=== PATIENT | female | born 1955 | race Caucasian/White ===

== ENCOUNTER 2017-10-13 22:09 | Inpatient (IN) ==
[2017-10-13] MEDS ORDERED: 0.9 % Sodium Chloride 1,000 ML IVC ONE (22:25)
[2017-10-13] MEDS ORDERED: Levofloxacin 750 MG/150 ML 750 MG/150 ML BAG IVPB ONE (22:29)
[2017-10-13] MEDS ORDERED: Piperacillin/Tazobactam 3.375 GM in 0.9 % Sodium Chloride Mini Bag 100 ML IVPB ONE (22:29)
[2017-10-13] MEDS ORDERED: Ipratropium/Albuterol Neb 3 ML IH ONE (22:29)
[2017-10-13] MEDS ORDERED: methylPREDNISolone 125 MG/2 ML VIAL IVP ONE (22:31)
[2017-10-13] MEDS ORDERED: Acetaminophen IV 1,000 MG/100 ML INFUS..BTL IVPB ONE (22:41)
--- NOTE | 2017-10-13 22:44 | Emergency Department Note ---
Disposition Clinical Impression: Influenza, Bronchitis, Hyponatremia, Thyroid lesion Respiratory failure Qualifiers: Chronicity: unspecified Respiratory failure complication: unspecified whether with hypoxia or hypercapnia Qualified Code(s): J96.90 - Respiratory failure, unspecified, unspecified whether with hypoxia or hypercapnia UTI (urinary tract infection) Qualifiers: Urinary tract infection type: site unspecified Hematuria presence: without hematuria Qualified Code(s): N39.0 - Urinary tract infection, site not specified Disposition: Admitted As Inpatient Condition: Fair Time of Disposition: 23:39 General Adult HPI - General Chief complaint: ED General Medical Stated complaint: Flu like symptoms Time Seen by Provider: 10/13/17 22:25 Source: patient Mode of arrival: ambulatory Limitations: no limitations Nursing Notes Reviewed: Yes Vital Signs Reviewed: Yes - History of Present Illness HPI Narrative: 62-year-old female with history of COPD presents for evaluation of shortness of breath and cough. Patient was found on the third floor the hospital. Patient appeared to be acutely confused. Patient's been visiting her significant other who is been in the hospital. Patient states she has been having a cough and shortness of breath. Patient's also been having a fever. Patient denies any chest pain. Pain Scale: 0 - Related Data Allergies Allergy/AdvReac Type Severity Reaction Status Date / Time acetaminophen [From Vicodin] AdvReac See Verified 10/13/17 22:14 Comments ceftriaxone [From Rocephin] AdvReac See Verified 10/13/17 22:14 Comments diazepam [From Valium] AdvReac See Verified 10/13/17 22:14 Comments hydrocodone [From Vicodin] AdvReac See Verified 10/13/17 22:14 Comments Methadone AdvReac See Verified 10/13/17 22:14 Comments morphine AdvReac Agitated Verified 10/13/17 22:14 All systems ED: reviewed and negative except as stated. Constitutional: Reports: fever Cardiovascular: Denies: chest pain Respiratory: Reports: cough, sputum production Gastrointestinal: Denies: abdominal pain, nausea, vomiting Past Medical History - Past Medical History Source: patient Medical history: Reports: COPD, hypertension Psychiatric history: Reports: no psych history - Social History Smoking Status: Current every day smoker Smokeless Tobacco Status: No Alcohol use: Reports: none Drug use: Reports: none Physical Exam - General Limitations: no limitations General appearance: alert - Head Head exam: atraumatic, normocephalic, normal inspection - Eye Eye exam: Present: normal appearance, PERRL - ENT ENT exam: normal exam, normal oropharynx, mucous membranes moist - Neck Neck exam: Present: normal inspection - Chest Chest inspection: Present: normal inspection - Respiratory Respiratory exam: Present: respiratory distress, accessory muscle use, prolonged expiratory phase, other (diffusely decreased) - Cardiovascular Cardiovascular exam: Present: normal rhythm, tachycardia. Absent: systolic murmur - Abdominal Exam Abdominal exam: Present: soft, Non-Tender - Extremities Exam Extremities exam: Present: normal inspection. Absent: pedal edema - Back Exam Back exam: Present: normal inspection - Neurological Exam Neurological exam: Present: alert, CN II-XII intact - Expanded Neurological Exam Patient oriented to: Present: person, place, time Speech: Present: fluid speech Coma Scale Eye Opening: Spontaneous Coma Scale Motor Response: Obeys Commands - Skin Skin exam: Present: warm, dry, intact, normal color Course Course Narrative: Patient was found crawling around on the third floor of the hospital. Patient does have a history of COPD. Found to be hypoxic. Concerns for respiratory failure. Patient does have surgical criteria likely sepsis and pneumonia. Patient will get basic labs including lactate blood cultures and chest x-ray. BiPAP placed. Patient will get antibiotics. - Reevaluation(s) Reevaluation #1: Patient has been tolerating the BiPAP well. Time: 23:47 Reevaluation #2: Patient seen and examined. Patient appears to be breathing more comfortably. We will discontinue BiPAP at this time for intermittent windows. Time: 23:54 Reevaluation #3: Patient seen and examined. Patient's resting comfortably. Patient's mental status appears to be improving. Family at bedside states the patient does have a strong history of COPD and smoking. Patient intermittently worse oxygen. Patient's episode earlier today with altered mental status likely combination of several factors including hypoxia, UTI and influenza. Time: 01:09 Vital Signs Temperature 102.8 F H 10/13/17 22:14 Pulse Rate 112 10/13/17 22:14 Respiratory Rate 20 10/13/17 22:14 Blood Pressure 139/79 10/13/17 22:14 O2 Sat by Pulse Oximetry 85 10/13/17 22:14 Temperature 97.5 F L 10/14/17 03:09 Pulse Rate 81 10/14/17 03:48 Respiratory Rate 16 10/14/17 03:48 Blood Pressure 117/68 10/14/17 03:09 O2 Sat by Pulse Oximetry 100 10/14/17 03:48 Oxygen Delivery Oxygen Delivery Room Air Medical Decision Making - MDM Narrative Medical decision making narrative: 62-year-old female persists for evaluation of respiratory distress. Patient was found to be in hypoxemic respiratory distress with requirement of BiPAP. Patient does have a history of COPD. Patient was given nebs as well as steroids. Patient's workup in the emergency department reveals influenza positive. Patient was given Tamiflu given her comorbidities and work of breathing. Patient was found missing her significant other upstairs. Patient was confused likely related to her decreased oxygen status. Patient met SIRS criteria however the patient did not meet the 30 mL/kg IV fluid bolus requirement. Patient appears warm and well-perfused. Patient was given triple antibiotics to cover the most likely respiratory pathogens. Patient urine shows signs of infection. Patient's CT of the chest shows findings consistent with bronchitis bronchiolitis. Patient's head CT shows no acute bleeds. Patient clinically does not have mastoiditis but has signs of influenza upper respiratory virus. Patient was treated with triple antibiotics early on in the course given her sepsis. Patient's altered mental status is not consistent with meningitis or encephalitis. Patient's fever is explained by her positive influenza and bronchitis and bronchiolitis. Patient's mental status has improved during her ED course. - Lab Data Lab results reviewed: Yes I reviewed the patient's lab results. Result diagrams: 10/14/17 04:27 10/14/17 04:27 Lab Results 10/13/17 10/13/17 10/13/17 Range/Units 22:27 22:27 22:27 WBC 3.5 L (4.3-11.1) K/mcL RBC 3.91 (3.82-4.97) M/mcL Hgb 10.7 L (11.5-15.4) g/dL Hct 34.1 L (35.3-44.9) % MCV 87.2 (83.0-100.0) fL MCH 27.4 L (28.0-33.3) pg MCHC 31.4 L (31.6-35.5) g/dL RDW 15.6 H (11.5-14.5) % Plt Count 169 (140-400) K/mcL MPV 10.3 (9.4-12.4) fL Immature Gran % 0.3 (0-4) % Seg Neutrophils % 75.4 % Lymphocytes % 18.6 % Monocytes % 5.4 % Eosinophils % 0.0 % Basophils % 0.3 % Neutrophils # 2.6 (1.6-8.9) K/mcL Lymphocytes # 0.7 (0.6-4.6) K/mcL Monocytes # 0.2 (0.0-1.3) K/mcL Eosinophils # 0.0 (0.0-0.6) K/mcL Basophils # 0.0 (0.0-0.2) K/mcL Sample Site ABG pH (7.32-7.45) pH Units ABG pCO2 (35-45) mmHg ABG pO2 (85-104) mmHg ABG HCO3 (21-27) mEq/L ABG Total CO2 (20-26) mEq/L ABG O2 Saturation (95-98) % ABG Base Excess (-2 to 3) mEq/L [place] Test O2 Delivery Device Inspired O2 (1-15=lpm [id number]=%) Sodium 132 L (136-145) mEq/L Potassium 4.2 (3.5-5.1) mEq/L Chloride 99 (98-107) mEq/L Carbon Dioxide 26 (23-29) mEq/L BUN 14 (8-23) mg/dL Creatinine 0.98 (0.60-1.20) mg/dL Est GFR ( Amer) > 60 (> 60) Est GFR (Non-Af Amer) 58 L (> 60) BUN/Creatinine Ratio 14 (6-26) Glucose 81 (70-105) mg/dL Calculated Osmolality 274 L (280-300) Lactic Acid 0.7 (0.5-2.2) mmol/L Calcium 9.1 (8.6-10.3) mg/dL Troponin I < 0.03 (< 0.04) ng/mL B-Natriuretic Peptide (Less than 100) pg/mL Urine Color (Yellow) Urine Clarity (Clear) Urine pH (5.0-8.0) pH Units Ur Specific [place] (1.010-1.025) Urine Protein (Neg-Trace) mg/dL Urine Glucose (UA) (Normal) mg/dL Urine Ketones (Negative) mg/dL Urine Blood (Negative) Urine Nitrite (Negative) Urine Bilirubin (Negative) Urine Urobilinogen (Normal) mg/dL Ur Leukocyte Esterase (Negative) Urine Microscopic RBC (0-3) per hpf Urine Microscopic WBC (0-3) per hpf Ur Squamous Epith Cells (None-Few) per lpf Urine Bacteria (None-Few) per hpf Hyaline Casts (None-Few) per lpf 10/13/17 10/13/17 10/13/17 Range/Units 22:27 22:55 23:24 WBC (4.3-11.1) K/mcL RBC (3.82-4.97) M/mcL Hgb (11.5-15.4) g/dL Hct (35.3-44.9) % MCV (83.0-100.0) fL MCH (28.0-33.3) pg MCHC (31.6-35.5) g/dL RDW (11.5-14.5) % Plt Count (140-400) K/mcL MPV (9.4-12.4) fL Immature Gran % (0-4) % Seg Neutrophils % % Lymphocytes % % Monocytes % % Eosinophils % % Basophils % % Neutrophils # (1.6-8.9) K/mcL Lymphocytes # (0.6-4.6) K/mcL Monocytes # (0.0-1.3) K/mcL Eosinophils # (0.0-0.6) K/mcL Basophils # (0.0-0.2) K/mcL Sample Site L Radial ABG pH 7.41 (7.32-7.45) pH Units ABG pCO2 41 (35-45) mmHg ABG pO2 144 H (85-104) mmHg ABG HCO3 26 (21-27) mEq/L ABG Total CO2 28 H (20-26) mEq/L ABG O2 Saturation 99 H (95-98) % ABG Base Excess 2 (-2 to 3) mEq/L [place] Test N/A O2 Delivery Device BiPAP Inspired O2 40.0 (1-15=lpm [id number]=%) Sodium (136-145) mEq/L Potassium (3.5-5.1) mEq/L Chloride (98-107) mEq/L Carbon Dioxide (23-29) mEq/L BUN (8-23) mg/dL Creatinine (0.60-1.20) mg/dL Est GFR ( Amer) (> 60) Est GFR (Non-Af Amer) (> 60) BUN/Creatinine Ratio (6-26) Glucose (70-105) mg/dL Calculated Osmolality (280-300) Lactic Acid (0.5-2.2) mmol/L Calcium (8.6-10.3) mg/dL Troponin I (< 0.04) ng/mL B-Natriuretic Peptide 120 H (Less than 100) pg/mL Urine Color Yellow (Yellow) Urine Clarity Clear (Clear) Urine pH 7.0 (5.0-8.0) pH Units Ur Specific [place] 1.012 (1.010-1.025) Urine Protein Trace (Neg-Trace) mg/dL Urine Glucose (UA) Normal (Normal) mg/dL Urine Ketones 15 H (Negative) mg/dL Urine Blood Negative (Negative) Urine Nitrite Positive A (Negative) Urine Bilirubin Negative (Negative) Urine Urobilinogen Normal (Normal) mg/dL Ur Leukocyte Esterase Trace H (Negative) Urine Microscopic RBC 0-3 (0-3) per hpf Urine Microscopic WBC 5-15 H (0-3) per hpf Ur Squamous Epith Cells Many H (None-Few) per lpf Urine Bacteria Many H (None-Few) per hpf Hyaline Casts None Seen (None-Few) per lpf - Radiology Data Radiology results reviewed: Yes I reviewed the patient's radiology results. Head CT 10/14/17 22:57 IMPRESSION: 1. No acute hemorrhage or evidence for acute ischemia. 2. Paranasal sinus disease including acute bilateral maxillary sinusitis with left-sided mastoiditis. D/ / Gene Costello MD / Gene Costello MD Interpreting Provider: Gene Costello MD Chest CTA 10/14/17 22:59 IMPRESSION: 1. Limited evaluation of the subsegmental pulmonary arteries. No central or segmental pulmonary embolism is detected. 2. Innumerable punctate centrilobular ground-glass nodules with a tree-in-bud distribution, seen throughout both lungs. This is associated with bronchial wall thickening and mucous plugging. Overall, these findings are most compatible with bronchitis and bronchiolitis, likely infectious in etiology. 3. Enlarged mediastinal lymph nodes, which presumably are reactive. 4. 1.3 cm left thyroid lesion. Unless the patient is at high risk for thyroid neoplasm, based upon most recent recommendations, no further follow-up is necessary (see below). RECOMMENDATIONS: Managing Incidental Thyroid Nodule Detected at CT or MRI or US 1. Further evaluation by thyroid Ultrasound recommended for these incidental nodules: Patient Age 18 years or less - Any nodule. Patient Age 19-34 years old - Nodule 1 cm in size or greater Patient Age 35 years or more - Nodule 1.5 cm in size or greater 2. Follow up thyroid ultrasound also recommend in these scenarios -Solitary nodule with high risk imaging features (locally invasive nodule or suspicious lymph nodes) -Any nodule in a heterogeneous enlarged thyroid gland 3. NO further imaging is recommended in the following scenarios -No f/u imaging is recommended for ITNs not meeting the above criteria. -No US or f/u recommended for ITNs without high risk features in pts. with limited life expectancy or significant co-morbidities, unless clinically warranted. Note: These recommendations do not apply to pts. w/ increased risk for thyroid cancer or pts. with symptomatic thyroid disease. Recommendations for f/u of Incidental Thyroid Nodules (ITN) found on CT, MR, NM and Extrathyroidal US are based upon the ACR white paper and Arellano 3-tiered system for managing ITNs: J Am Shelli Radiol. 2015 Aug;12(2): 143-50 D/ / Neal Grimm MD / Neal Grimm MD Interpreting Provider: Neal Grimm MD - EKG Data EKG #1 EKG attestation: Yes I reviewed and interpreted this EKG. EKG shows normal: sinus rhythm Rate: tachycardia Rhythm: NSR [place]/QRS: normal T wave inversions noted in: v1, v2 Interpretation: no acute changes, nonspecific ST-T wave changes S.Norma - Riya Situation: Demographics Background: Presenting Complaint Assessment: Vital Signs, Course and respsone to treatment, Patient/Family Expectation Recommendation: Barrier(s) to disposition, Recommendation based on pending studies, treatments, or consults SYfn Report Given to: Dr. Cramer SYfn Repor Time: 01:21 Attestation Statement - Attestation Attestation: I examined this patient and my medical decision-making was reviewed with the Resident Physician. I agree with the documented findings, disposition and treatment plan as described except to the extent set forth below. Findings consistent with influenza, urinary tract infection. We will start antibiotics for UTI, send cultures, start Tamiflu, fever control. Patient was admitted for further management and evaluation. Initially patient required BiPAP for hypoxia and this improved during departmental course. I spent greater than 35 minutes of critical care time resuscitating this acutely ill patient suffering from respiratory failure requiring bipap. This was excluding billable procedures.
[2017-10-13 22:54] LABS: Basophils % 0.3 %; Hematocrit 34.1 % (35.3-44.9); Hemoglobin 10.7 g/dL (11.5-15.4); Immature Granulocytes % 0.3 % (0-4); Lymphocytes # 0.7 K/mcL (0.6-4.6); Lymphocytes % 18.6 %; Mean Corpuscular HGB Conc 31.4 g/dL (31.6-35.5); Mean Corpuscular Hemoglobin 27.4 pg (28.0-33.3); Mean Corpuscular Volume 87.2 fL (83.0-100.0); Mean Platelet Volume 10.3 fL (9.4-12.4); Monocytes # 0.2 K/mcL (0.0-1.3); Monocytes % 5.4 %; Neutrophils # 2.6 K/mcL (1.6-8.9); Platelet Count 169 K/mcL (140-400); Red Blood Count 3.91 M/mcL (3.82-4.97); Red Cell Distribution Width 15.6 % (11.5-14.5); Segmented Neutrophils % 75.4 %
[2017-10-13 22:59] LABS: ABG Base Excess 2 mEq/L (-2 to 3); ABG HCO3 26 mEq/L (21-27); ABG Oxygen Saturation 99 % (95-98); ABG PCO2 41 mmHg (35-45); ABG PH 7.41 pH Units (7.32-7.45); ABG PO2 144 mmHg (85-104); ABG TCO2 28 mEq/L (20-26)
[2017-10-13 23:00] LABS: BUN/Creatinine Ratio 14 (6-26); Blood Urea Nitrogen 14 mg/dL (8-23); Calcium 9.1 mg/dL (8.6-10.3); Carbon Dioxide 26 mEq/L (23-29); Chloride 99 mEq/L (98-107); Glucose 81 mg/dL (70-105); Osmolality,Calculated 274 (280-300); Potassium 4.2 mEq/L (3.5-5.1); Sodium 132 mEq/L (136-145); eGFR For African Americans > 60 (> 60); eGFR For Non-African Americans 58 (> 60)
[2017-10-13 23:01] LABS: Troponin I < 0.03 ng/mL (< 0.04)
[2017-10-13 23:33] LABS: Bilirubin,Urine Negative (Negative); Blood,Urine Negative (Negative); Clarity,Urine Clear (Clear); Color,Urine Yellow (Yellow); Glucose,Urine (UA) Normal (Normal); Ketones,Urine 15 mg/dL (Negative); Leukocyte Esterase,Urine Trace (Negative); Nitrite,Urine Positive (Negative); Protein,Urine Trace mg/dL (Neg-Trace); Specific Gravity,Urine 1.012 (1.010-1.025); Urobilinogen,Urine Normal (Normal)
[2017-10-13 23:35] LABS: Bacteria,Urine Many per hpf (None-Few); Hyaline Casts,Urine None Seen per lpf (None-Few); RBC,Urine 0-3 per hpf (0-3); Squamous Epithelial Cell,Urine Many per lpf (None-Few)
[2017-10-14] MEDS ORDERED: Haloperidol Lactate 5 MG/ML VIAL IVP ONE (00:38)
[2017-10-14] MEDS ORDERED: *HR* Promethazine 25 MG/ML VIAL IVP PRN (01:18)
[2017-10-14] MEDS ORDERED: *HR* HYDROcodone/Acet 5/325 mg TABLET PO PRN (01:18)
[2017-10-14] MEDS ORDERED: Ondansetron 4 MG/2 ML VIAL IVP PRN (01:18)
[2017-10-14] MEDS ORDERED: Acetaminophen 325 MG TABLET PO PRN (01:18)
[2017-10-14] MEDS ORDERED: Naloxone 0.4 MG/ML INJ IVP PRN (01:18)
[2017-10-14] MEDS ORDERED: Ipratropium/Albuterol Neb 3 ML IH PRN (01:21)
[2017-10-14] MEDS ORDERED: 0.9 % Sodium Chloride 1,000 ML IVC SCH (01:30)
--- NOTE | 2017-10-14 02:26 | Internal Med History&Physical ---
Date of Encounter: 10/14/17 Time of Encounter: 13:30 Internal Medicine - H&P: HPI Chief complaint: Shortness of breath.. Altered mental status Admitted From: Emergency Dept Plans for Post Hospital Care: Home History of present illness: Ms. Arce is a 62 year old female with known COPD, HTN and chronic heavy smoker pt was brought into ER by family stating that pt looks little confused and compling of SOB and CHUNG. Pt was visiting her this evening who got admitted here, since pt looks more consufes she was sent to ER for further eval. Pt was hypoxic and her Influenza B came back positive. She does have fever with T max 102.8. Pt was given IV Haldol in the ER, now she is sleeping, unable to give me any history. All the information I have here was provided by her daughter who is at bed side. Past Med Surg Social Fam HX - Past Medical History Medical history: COPD, hypertension Psychiatric history: no psych history - Social History Smoking Status: Current every day smoker Smokeless Tobacco Status: No Alcohol use: none Drug use: none - Additional Family History Additional family history: Family hsitory reviewed and non contribuitory to current problem. Internal Medicine - H&P: Meds 3 Allergy/AdvReac Type Severity Reaction Status Date / Time acetaminophen [From Vicodin] AdvReac See Verified 10/13/17 22:14 Comments ceftriaxone [From Rocephin] AdvReac See Verified 10/13/17 22:14 Comments diazepam [From Valium] AdvReac See Verified 10/13/17 22:14 Comments hydrocodone [From Vicodin] AdvReac See Verified 10/13/17 22:14 Comments Methadone AdvReac See Verified 10/13/17 22:14 Comments morphine AdvReac Agitated Verified 10/13/17 22:14 All Systems PM: A 10-system review of systems was performed and is negative for pertinent findings except as documented above in the HPI. Review of systems: All the systems are reviewed everything is benign except the systems and symptoms I mentioned in the history of present illness - Constitutional Vitals: Temp Pulse Resp BP Pulse Ox 100.2 F H 942 28 157/84 10 10/14/17 01:23 10/13/17 23:34 10/13/17 23:34 10/13/17 23:34 10/13/17 23:12 General appearance: Present: A&O X 1, mild distress Exam: Sleepy and sedative - Head Head exam: Present: atraumatic, normal inspection - Neck Neck exam general surgery: Present: supple - Respiratory Respiratory exam: Present: decreased breath sounds, wheezes (moderate). Absent : rales, respiratory distress, rhonchi - Cardiovascular Cardiovascular exam: Present: RRR, +S1, +S2. Absent: tachycardia - GI/Abdominal GI/Abdominal exam: Present: normal bowel sounds, soft. Absent: rebound, rigid, tenderness - Extremities Exam Extremities exam: Absent: calf tenderness, pedal edema, tenderness - Back Exam Back exam: Absent: CVA tenderness (L), CVA tenderness (R) - Neurological Exam Neurological exam: Present: alert, altered - Psychiatric Psychiatric exam: Present: anxious - Skin Skin exam: Absent: rash Internal Med - H&P Results - Labs CBC & Chem 7: 10/13/17 22:27 10/13/17 22:27 Labs: Short CBC 10/13/17 Range/Units 22:27 WBC 3.5 L (4.3-11.1) K/mcL Hgb 10.7 L (11.5-15.4) g/dL Hct 34.1 L (35.3-44.9) % Plt Count 169 (140-400) K/mcL Neutrophils # 2.6 (1.6-8.9) K/mcL BMP 10/13/17 22:27 Sodium 132 L Potassium 4.2 Chloride 99 Carbon Dioxide 26 BUN 14 Creatinine 0.98 Glucose 81 Calcium 9.1 Cardiac Enzymes 10/13/17 Range/Units 22:27 Troponin I < 0.03 (< 0.04) ng/mL Urine 10/13/17 Range/Units 23:24 Urine Color Yellow (Yellow) Urine Clarity Clear (Clear) Urine pH 7.0 (5.0-8.0) pH Units Ur Specific [place] 1.012 (1.010-1.025) Urine Protein Trace (Neg-Trace) mg/dL Urine Glucose (UA) Normal (Normal) mg/dL - ABG Interpretation ABG results: 10/13/17 22:55 ABG pH 7.41 ABG pCO2 41 ABG pO2 144 H ABG HCO3 26 ABG Total CO2 28 H ABG O2 Saturation 99 H ABG Base Excess 2 - Impressions ITS Impressions Head CT 10/14/17 22:57 IMPRESSION: 1. No acute hemorrhage or evidence for acute ischemia. 2. Paranasal sinus disease including acute bilateral maxillary sinusitis with left-sided mastoiditis. D/ / Gene Costello MD / Gene Costello MD Interpreting Provider: Gene Costello MD Chest CTA 10/14/17 22:59 IMPRESSION: 1. Limited evaluation of the subsegmental pulmonary arteries. No central or segmental pulmonary embolism is detected. 2. Innumerable punctate centrilobular ground-glass nodules with a tree-in-bud distribution, seen throughout both lungs. This is associated with bronchial wall thickening and mucous plugging. Overall, these findings are most compatible with bronchitis and bronchiolitis, likely infectious in etiology. 3. Enlarged mediastinal lymph nodes, which presumably are reactive. 4. 1.3 cm left thyroid lesion. Unless the patient is at high risk for thyroid neoplasm, based upon most recent recommendations, no further follow-up is necessary (see below). RECOMMENDATIONS: Managing Incidental Thyroid Nodule Detected at CT or MRI or US 1. Further evaluation by thyroid Ultrasound recommended for these incidental nodules: Patient Age 18 years or less - Any nodule. Patient Age 19-34 years old - Nodule 1 cm in size or greater Patient Age 35 years or more - Nodule 1.5 cm in size or greater 2. Follow up thyroid ultrasound also recommend in these scenarios -Solitary nodule with high risk imaging features (locally invasive nodule or suspicious lymph nodes) -Any nodule in a heterogeneous enlarged thyroid gland 3. NO further imaging is recommended in the following scenarios -No f/u imaging is recommended for ITNs not meeting the above criteria. -No US or f/u recommended for ITNs without high risk features in pts. with limited life expectancy or significant co-morbidities, unless clinically warranted. Note: These recommendations do not apply to pts. w/ increased risk for thyroid cancer or pts. with symptomatic thyroid disease. Recommendations for f/u of Incidental Thyroid Nodules (ITN) found on CT, MR, NM and Extrathyroidal US are based upon the ACR white paper and Arellano 3-tiered system for managing ITNs: J Am Shelli Radiol. 2014;12(2): 143-50 D/ / Neal Grimm MD / Neal Grimm MD Interpreting Provider: Neal Grimm MD - Assessment and plan (1) Sepsis Current Visit: Yes Status: Acute Assessment and plan: Admit the pt into Tele she does meet sepsis criteria with Fever, Sinus tachycardia, and source of inf as Bronchitis + UTI Blood cx done in ER Sputum cx, Strep PNA, Legionella, and Resp viral panel ordered cont broad spec abx Zosyn + Levaquin Vancomycin 1gm IV x 1 dose given in the ER Qualifiers: Sepsis type: sepsis due to unspecified organism Qualified Code(s): A41.9 - Sepsis, unspecified organism (2) Acute on chronic respiratory failure with hypoxia Current Visit: Yes Status: Acute Assessment and plan: Due to Bronchitis + COPD exacerbation cont empirical abx + Steroids and Duoneb She does use O2 at home as needed Reviewed ABG - she does not have any hypercapnea / chronic CO2 retention cont O2 through NC (3) Acute delirium Current Visit: Yes Status: Acute Assessment and plan: Due to toxic encephalopathy with sepsis cont to treat her sepsis and resp failure (4) COPD exacerbation Current Visit: Yes Status: Acute Assessment and plan: Started on high dose IV steroids Duoneb + O2 (5) Bronchitis Current Visit: Yes Status: Acute Assessment and plan: Influenza related (6) Influenza Current Visit: Yes Status: Acute Assessment and plan: Influenza B positive will check resp viral panel started her on Tamiflu (7) UTI (urinary tract infection) Current Visit: Yes Status: Acute Assessment and plan: reviewed US showed bacteria , Nitrite + Esterase + Started on empirical abx Zosyn Qualifiers: Urinary tract infection type: site unspecified Hematuria presence: without hematuria Qualified Code(s): N39.0 - Urinary tract infection, site not specified (8) Tobacco dependence Current Visit: Yes Status: Acute Assessment and plan: Counseled to quit smoking placed on nicotine patch - Time Spent With Patient Total time spent is greater than 50% in coordination of care (as documented) at patient's floor/unit and/or counseling patient:
[2017-10-14 04:39] LABS: Basophils % 0.3 %; Hematocrit 32.1 % (35.3-44.9); Hemoglobin 10.4 g/dL (11.5-15.4); Immature Granulocytes % 0.6 % (0-4); Lymphocytes # 0.4 K/mcL (0.6-4.6); Lymphocytes % 10.5 %; Mean Corpuscular HGB Conc 32.4 g/dL (31.6-35.5); Mean Corpuscular Hemoglobin 28.5 pg (28.0-33.3); Mean Corpuscular Volume 87.9 fL (83.0-100.0); Mean Platelet Volume 10.4 fL (9.4-12.4); Monocytes # 0.1 K/mcL (0.0-1.3); Monocytes % 2.5 %; Neutrophils # 3.1 K/mcL (1.6-8.9); Platelet Count 154 K/mcL (140-400); Red Blood Count 3.65 M/mcL (3.82-4.97); Red Cell Distribution Width 15.2 % (11.5-14.5); Segmented Neutrophils % 86.1 %
[2017-10-14 04:39] LABS: Adenovirus Not Detected (Not Detect); Bordetella Pertussis Not Detected (Not Detect); Chlamydophila pneumoniae Not Detected (Not Detect); Coronavirus 229E Not Detected (Not Detect); Coronavirus HKU1 Not Detected (Not Detect); Coronavirus NL63 Not Detected (Not Detect); Coronavirus OC43 Not Detected (Not Detect); Human Metapneumovirus Not Detected (Not Detect); Human Rhinovirus/Enterovirus Not Detected (Not Detect); Influenza A Subtype 2009 H1 Not Detected (Not Detect); Influenza A Untypeable Not Detected (Not Detect); Influenza B ***DETECTED*** (Not Detect); Mycoplasma pneumoniae Not Detected (Not Detect); Parainfluenza Virus 1 Not Detected (Not Detect); Parainfluenza Virus 2 Not Detected (Not Detect); Parainfluenza Virus 3 Not Detected (Not Detect); Parainfluenza Virus 4 Not Detected (Not Detect); Respiratory Syncytial Virus Not Detected (Not Detect)
[2017-10-14 04:59] LABS: BUN/Creatinine Ratio 15 (6-26); Blood Urea Nitrogen 14 mg/dL (8-23); Calcium 8.4 mg/dL (8.6-10.3); Carbon Dioxide 23 mEq/L (23-29); Chloride 103 mEq/L (98-107); Chol/HDL Ratio 2.4 (0-4.9); Cholesterol 121 mg/dL (< 200); Glucose 113 mg/dL (70-105); HDL Cholesterol 51 mg/dL (40-59); LDL Cholesterol,Calculated 56 mg/dL (0-99); Osmolality,Calculated 283 (280-300); Potassium 3.9 mEq/L (3.5-5.1); Sodium 136 mEq/L (136-145); Triglycerides 71 mg/dL (< 150); eGFR For African Americans > 60 (> 60); eGFR For Non-African Americans > 60 (> 60)
[2017-10-14] MEDS ORDERED: MethylPREDNISolone 40 MG/ML VIAL IVP SCH (06:00)
[2017-10-14] MEDS ORDERED: *HR* Enoxaparin 40 MG/0.4 ML SYRINGE SQ SCH (06:00)
[2017-10-14] MEDS ORDERED: Oseltamivir Phosphate 30 MG CAPSULE PO SCH (09:00)
[2017-10-14] MEDS ORDERED: Nicotine 21 MG PATCH.TD24 TD SCH (09:00)
[2017-10-14] MEDS ORDERED: Piperacillin/Tazobactam 3.375 GM in 0.9 % Sodium Chloride Mini Bag 100 ML IVPB SCH (10:00)
[2017-10-14 11:29] VITALS: BP 176/95
[2017-10-14] MEDS: predniSONE 20 MG TABLET PO SCH ×2 (12:07→13:18)
--- NOTE | 2017-10-14 13:24 | Internal Med Progress Note ---
Date of Encounter: 10/14/17 Time of Encounter: 13:23 - Assessment and plan (1) Influenza Current Visit: Yes Status: Acute Assessment and plan: Started day 2 of Tamiflu as patient has comorbidities. Patient has improved significantly from yesterday where she was on BiPAP. She is currently 92% on room air. Patient does have oxygen at home. Patient is requesting to leave AGAINST MEDICAL ADVICE. The risks of worsening condition and were discussed with patient at bedside. She says she understood, but had to see her as he is sick. I this time, patient clinically is alert and oriented to person, place, time. She does not appear delirious as she did in the emergency department. I suspect that her delirium was secondary to hypoxemia as well as her influenza. I cannot hold this patient here in the hospital at this time as she can make sound medical decisions and appears to have the capacity to do so. I explained to patient to return to the emergency department if she had any worsening of her current symptoms or if she developed any other symptoms. She understood. Patient will be discharged home with a prescription for Tamiflu, completion of her steroids, as well as Levaquin that will cover for both COPD exacerbation and UTI. (2) Acute on chronic respiratory failure with hypoxia Current Visit: Yes Status: Acute Assessment and plan: See above. Patient currently on room air. Has oxygen at home to use if needed. (3) Bronchitis Current Visit: Yes Status: Acute Assessment and plan: Supportive care. See above (4) COPD exacerbation Current Visit: Yes Status: Acute Assessment and plan: Patient sent home with steroids and Levaquin (5) Thyroid lesion Current Visit: Yes Status: Acute Assessment and plan: TSH was not able to be obtained as patient left AGAINST MEDICAL ADVICE. Patient should follow-up with primary care regarding the thyroid nodule. (6) Tobacco dependence Current Visit: Yes Status: Acute Assessment and plan: Patient was given nicotine patches here. (7) UTI (urinary tract infection) Current Visit: Yes Status: Acute Assessment and plan: Patient has nitrites, mild leukocyte esterase, and bacteria in urine. Currently on Levaquin for treatment. Qualifiers: Urinary tract infection type: site unspecified Hematuria presence: without hematuria Qualified Code(s): N39.0 - Urinary tract infection, site not specified - Subjective Interval history: 62-year-old female past mental history of COPD, hypertension, presented to the emergency department yesterday with hypoxia, requiring BiPAP. She was diagnosed with influenza type B. Patient was also noted to have episodes of acute delirium. Patient is on oxygen at home. Patient states that her symptoms have improved significantly and she is feeling well. Per nursing staff , she has been alert and oriented today. Patient has requested to leave AGAINST MEDICAL ADVICE as she needs to help her who is also been hospitalized. - Constitutional Vitals: Temp Pulse Resp BP Pulse Ox 97.8 F 69 16 176/95 92 10/14/17 11:27 10/14/17 11:27 10/14/17 11:27 10/14/17 11:27 10/14/17 11:27 General appearance: Present: A&O X 1, A&O X 3, no acute distress, answers questions appropriately Exam: Thin, elderly female, no acute distress, seemed agitated. - Head Head exam: Present: atraumatic, normal inspection - Neck Neck exam general surgery: Present: supple, trachea midline - Respiratory Respiratory exam: Present: rhonchi (Dye fuse). Absent: accessory muscle use - Cardiovascular Cardiovascular exam: Present: RRR, +S1, +S2. Absent: JVD - GI/Abdominal GI/Abdominal exam: Present: soft, no peritoneal signs. Absent: guarding, rigid , tenderness - Extremities Exam Extremities exam: Absent: pedal edema Internal Medicine: Result - Labs CBC & Chem 7: 10/14/17 04:27 10/14/17 04:27 Labs: Short CBC 10/14/17 Range/Units 04:27 WBC 3.6 L (4.3-11.1) K/mcL Hgb 10.4 L (11.5-15.4) g/dL Hct 32.1 L (35.3-44.9) % Plt Count 154 (140-400) K/mcL Neutrophils # 3.1 (1.6-8.9) K/mcL BMP 10/14/17 04:27 Sodium 136 Potassium 3.9 Chloride 103 Carbon Dioxide 23 BUN 14 Creatinine 0.93 Glucose 113 H Calcium 8.4 L - ABG Interpretation ABG results: ABG ABG pH 7.41 pH Units (7.32-7.45) 10/13/17 22:55 ABG pCO2 41 mmHg (35-45) 10/13/17 22:55 ABG pO2 144 mmHg (85-104) H 10/13/17 22:55 ABG O2 Saturation 99 % (95-98) H 10/13/17 22:55 - Impressions Impressions Head CT 10/14/17 22:57 IMPRESSION: 1. No acute hemorrhage or evidence for acute ischemia. 2. Paranasal sinus disease including acute bilateral maxillary sinusitis with left-sided mastoiditis. D/ / Gene Costello MD / Gene Costello MD Interpreting Provider: Gene Costello MD Chest CTA 10/14/17 22:59 IMPRESSION: 1. Limited evaluation of the subsegmental pulmonary arteries. No central or segmental pulmonary embolism is detected. 2. Innumerable punctate centrilobular ground-glass nodules with a tree-in-bud distribution, seen throughout both lungs. This is associated with bronchial wall thickening and mucous plugging. Overall, these findings are most compatible with bronchitis and bronchiolitis, likely infectious in etiology. 3. Enlarged mediastinal lymph nodes, which presumably are reactive. 4. 1.3 cm left thyroid lesion. Unless the patient is at high risk for thyroid neoplasm, based upon most recent recommendations, no further follow-up is necessary (see below). RECOMMENDATIONS: Managing Incidental Thyroid Nodule Detected at CT or MRI or US 1. Further evaluation by thyroid Ultrasound recommended for these incidental nodules: Patient Age 18 years or less - Any nodule. Patient Age 19-34 years old - Nodule 1 cm in size or greater Patient Age 35 years or more - Nodule 1.5 cm in size or greater 2. Follow up thyroid ultrasound also recommend in these scenarios -Solitary nodule with high risk imaging features (locally invasive nodule or suspicious lymph nodes) -Any nodule in a heterogeneous enlarged thyroid gland 3. NO further imaging is recommended in the following scenarios -No f/u imaging is recommended for ITNs not meeting the above criteria. -No US or f/u recommended for ITNs without high risk features in pts. with limited life expectancy or significant co-morbidities, unless clinically warranted. Note: These recommendations do not apply to pts. w/ increased risk for thyroid cancer or pts. with symptomatic thyroid disease. Recommendations for f/u of Incidental Thyroid Nodules (ITN) found on CT, MR, NM and Extrathyroidal US are based upon the ACR white paper and Arellano 3-tiered system for managing ITNs: J Am Shelli Radiol. 2014;12(2): 143-50 D/ / Neal Grimm MD / Neal Grimm MD Interpreting Provider: Neal Grimm MD Consult Discharge Plan - Plan Instructions: Influenza (GEN) Additional Instructions: Follow-up by setting up an appointment with your primary care provider today to be seen immediately. Your leaving AGAINST MEDICAL ADVICE. The risks of leaving AGAINST MEDICAL ADVICE include but are not limited to Take all medications as prescribed. Return to the emergency department if you develop any new symptoms or if you have any worsening of your current symptoms. Referrals: Eder Lane MD [Primary Care Provider] - 10/23/17 10:00 am Prescriptions: levoFLOXacin [Levofloxacin] 750 mg PO QDPC #6 tablet Oseltamivir Phosphate [Tamiflu] 30 mg PO BID #8 capsule PredniSONE [Deltasone] 40 mg PO QDPC #6 tablet
--- NOTE | 2017-10-14 13:43 | Discharge Summary ---
<Jaquan Marrero - Last Filed: 10/14/17 14:37> Orders not resulted at time of discharge: Pending orders 10/15/17 04:00 TSH [Thyroid Stimulating Hormone] AM 0400 Date of Encounter: 10/14/17 Time of Encounter: 14:37 - Discharge Diagnosis (1) Influenza Priority: Primary Status: Acute (2) Acute on chronic respiratory failure with hypoxia Priority: Primary Status: Acute (3) Bronchitis Priority: Primary Status: Acute (4) COPD exacerbation Priority: Primary Status: Acute (5) Sepsis Priority: Primary Status: Acute Qualifiers: Sepsis type: sepsis due to unspecified organism Qualified Code(s): A41.9 - Sepsis, unspecified organism (6) Thyroid lesion Priority: Secondary Status: Acute (7) Tobacco dependence Priority: Secondary Status: Acute (8) UTI (urinary tract infection) Priority: Primary Status: Acute Qualifiers: Urinary tract infection type: site unspecified Hematuria presence: without hematuria Qualified Code(s): N39.0 - Urinary tract infection, site not specified Hospital course: See progress note from 10/14/2017 - Time Spent with Patient Total time spent providing and/or coordinating discharge services: - Discharge Medications Prescriptions: levoFLOXacin [Levofloxacin] 750 mg PO QDPC #6 tablet Oseltamivir Phosphate [Tamiflu] 30 mg PO BID #8 capsule PredniSONE [Deltasone] 40 mg PO QDPC #6 tablet Home Medications: Albuterol Sulfate [Proair Hfa] 2 puff IH Q4H PRN 10/14/17 [History] Budesonide/Formoterol 160/4.5 [Symbicort 160/4.5] 2 puff IH BIDR 10/14/17 [ History] Cyclobenzaprine [Flexeril] 10 mg PO BID 10/14/17 [History] Gabapentin [Neurontin] 800 mg PO QID 10/14/17 [History] Lisinopril [Zestril] 5 mg PO DAILY 10/14/17 [History] Meloxicam [Mobic] 15 mg PO DAILY 10/14/17 [History] Omeprazole [PriLOSEC] 40 mg PO DAILY 10/14/17 [History] Oseltamivir Phosphate [Tamiflu] 30 mg PO BID #8 capsule 10/14/17 [Rx] OxyCODONE/APAP 5/325 [Percocet 5/325 MG] 1 tab PO 2-3XD PRN 10/14/17 [History] PredniSONE [Deltasone] 40 mg PO QDPC #6 tablet 10/14/17 [Rx] Promethazine [Phenergan] 12.5 mg PO Q6HR PRN 10/14/17 [History] hydrOXYzine HCl [Hydroxyzine HCl] 25 mg PO QID PRN 10/14/17 [History] levoFLOXacin [Levofloxacin] 750 mg PO QDPC #6 tablet 10/14/17 [Rx] traZODone [TraZODone] 50 - 150 mg PO HS 10/14/17 [History] Allergies/Adverse Reactions: 3 Allergy/AdvReac Type Severity Reaction Status Date / Time acetaminophen [From Vicodin] AdvReac See Verified 10/13/17 22:14 Comments ceftriaxone [From Rocephin] AdvReac See Verified 10/13/17 22:14 Comments diazepam [From Valium] AdvReac See Verified 10/13/17 22:14 Comments hydrocodone [From Vicodin] AdvReac See Verified 10/13/17 22:14 Comments Methadone AdvReac See Verified 10/13/17 22:14 Comments morphine AdvReac Agitated Verified 10/13/17 22:14 Date of admission: 10/14/17 02:24 Primary care physician: Eder Lane MD - Constitutional Vitals: Temp Pulse Resp BP Pulse Ox 97.8 F 69 16 176/95 92 10/14/17 11:27 10/14/17 11:27 10/14/17 11:27 10/14/17 11:27 10/14/17 11:27 General appearance: Present: A&O X 1, mild distress Exam: See progress note from 10/14/2017. - Patient Status Disposition: Left Against Medical Advice Condition: Fair Overall status at discharge: patient is not back to baseline - Discharge Instructions Instructions: Influenza (GEN) Follow Up With: Eder Lane MD [Primary Care Provider] - 10/23/17 10:00 am Additional Instructions: Follow-up by setting up an appointment with your primary care provider today to be seen immediately. Your leaving AGAINST MEDICAL ADVICE. The risks of leaving AGAINST MEDICAL ADVICE include but are not limited to Take all medications as prescribed. Return to the emergency department if you develop any new symptoms or if you have any worsening of your current symptoms. - Diet and Activity Diet: advance to your usual diet <Ted Abbott - Last Filed: 10/14/17 15:11> Date of Encounter: 10/14/17 Hospital course: Ms. Arce is a 62 year old female - Time Spent with Patient Total time spent providing and/or coordinating discharge services: Date of admission: 10/14/17 02:24 Primary care physician: Eder Lane MD - Constitutional Vitals: Temp Pulse Resp BP Pulse Ox 97.8 F 69 16 176/95 92 10/14/17 11:27 10/14/17 11:27 10/14/17 11:27 10/14/17 11:27 10/14/17 11:27 - Attending Attestation I performed an independent interview and examine this patient. I agree with the findings, assessment, and plan of Dr. Mir, internal medicine internal affairs commander. Patient unfortunately left AMA. We did provide her with Levaquin, as well as prednisone and Tamiflu with hopes that we can give her the best chance for recovery. Unfortunately given the fact that she left AGAINST MEDICAL ADVICE, it is unknown if she will follow-up or comply. We did advise her to seek medical attention immediately. In my opinion patient did have the capacitance to make her own decisions and understand potential outcomes of them. She did understand that she could get very sick and possibly even from her acute illness if not appropriately treated.
[2017-10-14] MEDS ORDERED: Gabapentin 300 MG CAPSULE PO SCH (15:00)
--- NOTE | 2017-10-14 17:20 | Electrocardiograph Report ---
[place] [id number] Test Date: 2017-10-13 Pat Name: Arely Arce Department: 102 Room: 2N01 Gender: F Clinical Audiologist: Aislinn : [id number] Requested By: Neil Coppola Order Number: [id number] Reading MD: Merle De La Cruz Measurements Intervals [place] Rate: 108 P: 83 MT: 130 QRS: 24 QRSD: 81 T: 74 QT: 336 QTc: 399 Interpretive Statements SINUS TACHYCARDIA ABNORMAL RHYTHM ECG Electronically Signed On 10-14-2017 17:18:33 EDT by Merle De La Cruz
[2017-10-16] MEDS ORDERED: Levofloxacin 750 MG/150 ML 750 MG/150 ML BAG IVPB SCH (01:00)
== END 2017-10-14 15:00 | disposition left against medical advice (07) | DRG 871 ==
LOC: 2NNU 22:09 → EMEROO 22:09 → 2NNU 10-14 02:53
PROVIDERS: ADMIT Family Medicine; ATTEND Internal Medicine

== ENCOUNTER 2018-07-11 17:26 | Observation (INO) ==
[2018-07-11] MEDS ORDERED: 0.9 % Sodium Chloride 1,000 ML IVC ONE (17:37)
[2018-07-11] MEDS ORDERED: Ipratropium/Albuterol Neb 3 ML IH ONE (17:37)
[2018-07-11] MEDS ORDERED: predniSONE 20 MG TABLET PO ONE (17:37)
--- NOTE | 2018-07-11 17:47 | Emergency Department Note ---
Disposition Clinical Impression: Acute exacerbation of chronic obstructive airways disease, Hypoxia Disposition: Admitted As Inpatient Condition: Good Referrals: Bill Mckeon DO [Primary Care Provider] - Forms: ED Satisfaction Letter Time of Disposition: 19:32 General Adult HPI - General Chief complaint: ED Shortness of Breath/Dyspnea Stated complaint: PARVEEN Time Seen by Provider: 07/11/18 17:34 Source: patient, family Limitations: no limitations Nursing Notes Reviewed: Yes Vital Signs Reviewed: Yes - History of Present Illness HPI Narrative: 63-year-old female presents [facility] with her daughter who was a former ED nurse at [employer] Chief complaint is hypoxia and falling out. Patient was somewhat a poor historian. Her daughter is able to fill in any of the gaps states that about a week or so ago she saw Dr. Mckeon her primary care provider for clinically diagnosed her with pneumonia and started on Levaquin. She has been taking it for a week and getting progressively more short of breath fatigued and she has fallen down "10" times since yesterday. She spelled down because of weakness she did not pass out there was no loss of consciousness nor did she injure anything. Patient states she has had fever chills sputum and cough. Denies vomiting nausea diarrhea or anterior chest pain. Patient is on home O2 although is not consistent and the use of it. And continues to smoke. This been no ill contacts exotic food or recent travel. Per triage nurse patient's at went down to 85 on room air with talking. Pain Scale: 9 - Related Data Home Medications Medication Instructions Recorded Confirmed Albuterol Sulfate [Proair Hfa] 2 puff IH Q4H PRN 10/14/17 10/14/17 Budesonide/Formoterol 160/4.5 2 puff IH BIDR 10/14/17 10/14/17 [Symbicort 160/4.5] Cyclobenzaprine [Flexeril] 10 mg PO BID 10/14/17 10/14/17 Gabapentin [Neurontin] 800 mg PO QID 10/14/17 10/14/17 Lisinopril [Zestril] 5 mg PO DAILY 10/14/17 10/14/17 Meloxicam [Mobic] 15 mg PO DAILY 10/14/17 10/14/17 Omeprazole [PriLOSEC] 40 mg PO DAILY 10/14/17 10/14/17 OxyCODONE/APAP 5/325 [Percocet 1 tab PO 2-3XD PRN 10/14/17 10/14/17 5/325 MG] Promethazine [Phenergan] 12.5 mg PO Q6HR PRN 10/14/17 10/14/17 hydrOXYzine HCl [Hydroxyzine HCl] 25 mg PO QID PRN 10/14/17 10/14/17 traZODone [TraZODone] 50 - 150 mg PO HS 10/14/17 10/14/17 Previous Rx's Medication Instructions Recorded Oseltamivir Phosphate [Tamiflu] 30 mg PO BID #8 capsule 10/14/17 PredniSONE [Deltasone] 40 mg PO QDPC #6 tablet 10/14/17 levoFLOXacin [Levofloxacin] 750 mg PO QDPC #6 tablet 10/14/17 Allergies Allergy/AdvReac Type Severity Reaction Status Date / Time acetaminophen [From Vicodin] AdvReac See Verified 10/13/17 22:14 Comments ceftriaxone [From Rocephin] AdvReac See Verified 10/13/17 22:14 Comments diazepam [From Valium] AdvReac See Verified 10/13/17 22:14 Comments hydrocodone [From Vicodin] AdvReac See Verified 10/13/17 22:14 Comments Methadone AdvReac See Verified 10/13/17 22:14 Comments morphine AdvReac Agitated Verified 10/13/17 22:14 All systems ED: reviewed and negative except as stated. Constitutional: Reports: fever, chills, weakness Respiratory: Reports: cough, dyspnea, wheezes, sputum production Past Medical History - Past Medical History Attestation: Yes The following information was validated with the patient. Source: patient Medical history: Reports: COPD, hypertension Surgical history: Reports: cholecystectomy, hysterectomy Psychiatric history: Reports: no psych history - Social History Smoking Status: Current every day smoker Smokeless Tobacco Status: No Alcohol use: Reports: none Drug use: Reports: none Physical Exam - General Limitations: no limitations General appearance: alert, in distress - Head Head exam: atraumatic, normocephalic - Eye Eye exam: Present: normal appearance, PERRL - ENT ENT exam: normal exam, normal oropharynx - Neck Neck exam: Present: normal inspection, full ROM - Chest Chest inspection: Present: normal inspection, symmetric chest wall rise - Respiratory Respiratory exam: Present: respiratory distress, wheezes, accessory muscle use, prolonged expiratory phase - Cardiovascular Cardiovascular exam: Present: regular rate, normal rhythm - Abdominal Exam Abdominal exam: Present: soft, Non-Tender - Extremities Exam Extremities exam: Present: normal inspection, full ROM - Expanded Lower Extremity Exam Neurovascular/Tendon exam: Present: normal capillary refill Gait: not tested/not observed - Back Exam Back exam: Present: normal inspection, full ROM - Neurological Exam Neurological exam: Present: alert, oriented X3, CN II-XII intact - Psychiatric Psychiatric exam: Present: normal affect, normal mood - Skin Skin exam: Present: warm, dry, intact Course - Reevaluation(s) Reevaluation #1: Patient is hypoxic on room air 86% replacement somewhat low to the triple DuoNeb oral steroids scapula chest x-ray EKG and screening labs. Providing 4500 critical care service this patient. Admission anticipated for failure of outpatient treatment of pneumonia #2 COPD flare. #3 hypoxia. Admission disposition pending. Time: 17:47 Reevaluation #2: ED workup is complete. Slightly elevated white count of 13,000 no left shift. Chemistry panel essentially within normal limits a slight bump in the BNP about 250. Troponin negative. Chest x-ray. Laboratory radiology as scarred granuloma in the right upper lobe otherwise no acute process mild cardiomegaly no effusion. Patient's distal very tired and winded in fact she felt x-ray striking her head briefly on the forehead above the left eye is no step off small hematoma there was no loss consciousness she is not on blood thinners. Hospitalist has been paged family is been informed admission pending Time: 19:27 Reevaluation #3: Case with the hospitalist Dr. Posada patient accepted for admission in stable condition. Time: 19:32 Vital Signs Temperature 98.7 F 07/11/18 17:32 Pulse Rate 103 07/11/18 17:32 Respiratory Rate 20 07/11/18 17:32 Blood Pressure 130/81 07/11/18 17:32 O2 Sat by Pulse Oximetry 86 07/11/18 17:32 Temperature 98.7 F 07/11/18 17:52 Pulse Rate 103 07/11/18 17:52 Respiratory Rate 16 07/11/18 18:06 Blood Pressure 130/81 07/11/18 17:52 O2 Sat by Pulse Oximetry 95 07/11/18 18:08 Oxygen Delivery Oxygen Delivery Room Air Medical Decision Making - Medical Records Medical records reviewed: Yes I reviewed the patient's medical records. - Lab Data Lab results reviewed: Yes I reviewed the patient's lab results. Result diagrams: 07/11/18 18:12 07/11/18 18:12 Lab Results 07/11/18 07/11/18 07/11/18 Range/Units 18:12 18:12 18:12 WBC 13.0 H (4.3-11.1) K/mcL RBC 4.10 (3.82-4.97) M/mcL Hgb 9.8 L (11.5-15.4) g/dL Hct 33.7 L (35.3-44.9) % MCV 82.2 L (83.0-100.0) fL MCH 23.9 L (28.0-33.3) pg MCHC 29.1 L (31.6-35.5) g/dL RDW 17.4 H (11.5-14.5) % Plt Count 301 (140-400) K/mcL MPV 9.5 (9.4-12.4) fL Immature Gran % 0.6 (0-4) % Seg Neutrophils % 82.8 % Lymphocytes % 7.9 % Monocytes % 7.0 % Eosinophils % 1.3 % Basophils % 0.4 % Neutrophils # 10.8 H (1.6-8.9) K/mcL Lymphocytes # 1.0 (0.6-4.6) K/mcL Monocytes # 0.9 (0.0-1.3) K/mcL Eosinophils # 0.2 (0.0-0.6) K/mcL Basophils # 0.1 (0.0-0.2) K/mcL Sodium 138 (136-145) mEq/L Potassium 3.6 (3.5-5.1) mEq/L Chloride 101 (98-107) mEq/L Carbon Dioxide 30 H (23-29) mEq/L BUN 21 (8-23) mg/dL Creatinine 0.95 (0.60-1.20) mg/dL Est GFR ( Amer) > 60 (> 60) Est GFR (Non-Af Amer) 60 (> 60) BUN/Creatinine Ratio 22 (6-26) Glucose 105 (70-105) mg/dL Calculated Osmolality 289 (280-300) Lactic Acid 0.8 (0.5-2.2) mmol/L Calcium 9.3 (8.6-10.3) mg/dL Troponin I < 0.03 (< 0.04) ng/mL B-Natriuretic Peptide (Less than 100) pg/mL 07/11/18 Range/Units 18:12 WBC (4.3-11.1) K/mcL RBC (3.82-4.97) M/mcL Hgb (11.5-15.4) g/dL Hct (35.3-44.9) % MCV (83.0-100.0) fL MCH (28.0-33.3) pg MCHC (31.6-35.5) g/dL RDW (11.5-14.5) % Plt Count (140-400) K/mcL MPV (9.4-12.4) fL Immature Gran % (0-4) % Seg Neutrophils % % Lymphocytes % % Monocytes % % Eosinophils % % Basophils % % Neutrophils # (1.6-8.9) K/mcL Lymphocytes # (0.6-4.6) K/mcL Monocytes # (0.0-1.3) K/mcL Eosinophils # (0.0-0.6) K/mcL Basophils # (0.0-0.2) K/mcL Sodium (136-145) mEq/L Potassium (3.5-5.1) mEq/L Chloride (98-107) mEq/L Carbon Dioxide (23-29) mEq/L BUN (8-23) mg/dL Creatinine (0.60-1.20) mg/dL Est GFR ( Amer) (> 60) Est GFR (Non-Af Amer) (> 60) BUN/Creatinine Ratio (6-26) Glucose (70-105) mg/dL Calculated Osmolality (280-300) Lactic Acid (0.5-2.2) mmol/L Calcium (8.6-10.3) mg/dL Troponin I (< 0.04) ng/mL B-Natriuretic Peptide 203 H (Less than 100) pg/mL - Radiology Data Radiology results reviewed: Yes I reviewed the patient's radiology results. - EKG Data EKG #1 EKG attestation: Yes I reviewed and interpreted this EKG. EKG results narrative: Twelve-lead EKG interpreted without the benefit of Cardiologic assistance shows sinus rhythm at 97 bpm normal QRS and QT corrected and DE interval. There is occasional unifocal PVC. No signs of acute ischemic changes, no acute changes when compared to prior EKG dated 10/13/2017.
[2018-07-11 18:33] LABS: Basophils # 0.1 K/mcL (0.0-0.2); Basophils % 0.4 %; Eosinophils # 0.2 K/mcL (0.0-0.6); Eosinophils % 1.3 %; Hematocrit 33.7 % (35.3-44.9); Hemoglobin 9.8 g/dL (11.5-15.4); Immature Granulocytes % 0.6 % (0-4); Lymphocytes % 7.9 %; Mean Corpuscular HGB Conc 29.1 g/dL (31.6-35.5); Mean Corpuscular Hemoglobin 23.9 pg (28.0-33.3); Mean Corpuscular Volume 82.2 fL (83.0-100.0); Mean Platelet Volume 9.5 fL (9.4-12.4); Monocytes # 0.9 K/mcL (0.0-1.3); Neutrophils # 10.8 K/mcL (1.6-8.9); Platelet Count 301 K/mcL (140-400); Red Cell Distribution Width 17.4 % (11.5-14.5); Segmented Neutrophils % 82.8 %
[2018-07-11 18:50] LABS: BUN/Creatinine Ratio 22 (6-26); Blood Urea Nitrogen 21 mg/dL (8-23); Calcium 9.3 mg/dL (8.6-10.3); Carbon Dioxide 30 mEq/L (23-29); Chloride 101 mEq/L (98-107); Glucose 105 mg/dL (70-105); Osmolality,Calculated 289 (280-300); Potassium 3.6 mEq/L (3.5-5.1); Sodium 138 mEq/L (136-145); Troponin I < 0.03 ng/mL (< 0.04); eGFR For Non-African Americans 60 (> 60)
[2018-07-11] MEDS ORDERED: Acetaminophen 325 MG TABLET PO PRN (21:03)
[2018-07-11] MEDS ORDERED: Naloxone 0.4 MG/ML INJ IVP PRN (21:03)
[2018-07-11] MEDS ORDERED: Ipratropium/Albuterol Neb 3 ML IH PRN (21:07)
--- NOTE | 2018-07-11 21:19 | Internal Med History&Physical ---
Date of Encounter: 07/11/18 Time of Encounter: 21:16 Internal Medicine - H&P: HPI Admitted From: Home Plans for Post Hospital Care: Home History of present illness: Ms. Arce is a 63 year old female presents with her daughter who was a former ED nurse at [employer] [facility] [employer]. Chief complaint is hypoxia and falling out. Patient was somewhat a poor historian. Her daughter is able to fill in any of the gaps states that about a week or so ago she saw Dr. Mckeon her primary care provider for clinically diagnosed her with pneumonia and started on Levaquin. She has been taking it for a week and getting progressively more short of breath fatigued and she has fallen down "10" times since yesterday. She spelled down because of weakness she did not pass out there was no loss of consciousness nor did she injure anything. Patient states she has had fever chills sputum and cough. Denies vomiting nausea diarrhea or anterior chest pain. Patient is on home O2 although is not consistent use of it. And continues to smoke. This been no ill contacts exotic food or recent travel. Per triage nurse patient's at went down to 85 on room air with talking. Vital signs were stable otherwise at the ED, labs were normal except slightly elevated BNP, trop is negative. CXR no pneumonia. Due to respiratory distress and frequent fall, pt will be admitted for further evaluation Past Med Surg Social Fam HX - Past Medical History Medical history: COPD, hypertension Additional medical history: emphysema Psychiatric history: no psych history - Past Surgical History Surgical History: cholecystectomy, hysterectomy - Social History Smoking Status: Current every day smoker Smokeless Tobacco Status: No Alcohol use: none Drug use: none - Family History Mother Hx Family Respiratory Disorders: Yes (lung cancer, copd,) Hx Family Neurologic Disorders: Yes (brain aneuryism) Internal Medicine - H&P: Meds Albuterol Sulfate [Proair Hfa] 2 puff IH Q4H PRN 10/14/17 [History] Budesonide/Formoterol 160/4.5 [Symbicort 160/4.5] 2 puff IH BIDR 10/14/17 [ History] Cyclobenzaprine [Flexeril] 10 mg PO BID 10/14/17 [History] Gabapentin [Neurontin] 800 mg PO QID 10/14/17 [History] Lisinopril [Zestril] 5 mg PO DAILY 10/14/17 [History] Meloxicam [Mobic] 15 mg PO DAILY 10/14/17 [History] Omeprazole [PriLOSEC] 40 mg PO DAILY 10/14/17 [History] Oseltamivir Phosphate [Tamiflu] 30 mg PO BID #8 capsule 10/14/17 [Rx] OxyCODONE/APAP 5/325 [Percocet 5/325 MG] 1 tab PO 2-3XD PRN 10/14/17 [History] PredniSONE [Deltasone] 40 mg PO QDPC #6 tablet 10/14/17 [Rx] Promethazine [Phenergan] 12.5 mg PO Q6HR PRN 10/14/17 [History] hydrOXYzine HCl [Hydroxyzine HCl] 25 mg PO QID PRN 10/14/17 [History] levoFLOXacin [Levofloxacin] 750 mg PO QDPC #6 tablet 10/14/17 [Rx] traZODone [TraZODone] 50 - 150 mg PO HS 10/14/17 [History] Allergy/AdvReac Type Severity Reaction Status Date / Time acetaminophen [From Vicodin] AdvReac See Verified 10/13/17 22:14 Comments ceftriaxone [From Rocephin] AdvReac See Verified 10/13/17 22:14 Comments diazepam [From Valium] AdvReac See Verified 10/13/17 22:14 Comments hydrocodone [From Vicodin] AdvReac See Verified 10/13/17 22:14 Comments Methadone AdvReac See Verified 10/13/17 22:14 Comments morphine AdvReac Agitated Verified 10/13/17 22:14 All Systems PM: A 10-system review of systems was performed and is negative for pertinent findings except as documented above in the HPI. Review of systems: REVIEW OF SYSTEMS: CONSTITUTIONAL: No weight loss, fever, chills, weakness or fatigue. HEENT: Eyes: No visual loss, blurred vision, double vision or yellow sclerae. Ears, Nose, Throat: No hearing loss, sneezing, congestion, runny nose or sore throat. SKIN: No rash or itching. CARDIOVASCULAR: No chest pain, chest pressure or chest discomfort. No palpitations or edema. RESPIRATORY: see HPI. GASTROINTESTINAL: No anorexia, nausea, vomiting or diarrhea. No abdominal pain or blood. GENITOURINARY: No dysuria, urgency, or frequency. NEUROLOGICAL: No headache, dizziness, syncope, paralysis, ataxia, numbness or tingling in the extremities. No change in bowel or bladder control. MUSCULOSKELETAL: No muscle, back pain, joint pain or stiffness, see HPI. HEMATOLOGIC: No anemia, bleeding or bruising. LYMPHATICS: No enlarged nodes. No history of splenectomy. PSYCHIATRIC: No history of depression or anxiety. ENDOCRINOLOGIC: No reports of sweating, cold or heat intolerance. No polyuria or polydipsia. - Constitutional Vitals: Temp Pulse Resp BP Pulse Ox 98.7 F 99 24 132/99 99 07/11/18 17:52 07/11/18 19:27 07/11/18 19:27 07/11/18 19:27 07/11/18 19:27 General appearance: Present: cooperative, A&O X 3, answers questions appropriately Exam: PHYSICAL EXAMINATION: GENERAL APPEARANCE: The patient is alert, oriented and in no acute distress. HEENT: Head is normocephalic. The sinuses are nontender. Pupils are equal and reactive. The nares are patent. Oropharynx clear without lesions. NECK: Supple without lymphadenopathy. HEART: Regular rate and rhythm. LUNGS: No crackles or wheezes are heard. ABDOMEN: Soft, nontender, nondistended with good bowel sounds heard. Inguinal area is normal. EXTREMITIES: Without cyanosis, clubbing or edema. NEUROLOGICAL: frequent loss of muscle tone noted on all extremities. normal muscle strength and normal DTR. SKIN: Warm and dry without any rash. Internal Med - H&P Results - Labs CBC & Chem 7: 07/11/18 18:12 07/11/18 18:12 Labs: Short CBC 07/11/18 Range/Units 18:12 WBC 13.0 H (4.3-11.1) K/mcL Hgb 9.8 L (11.5-15.4) g/dL Hct 33.7 L (35.3-44.9) % Plt Count 301 (140-400) K/mcL Neutrophils # 10.8 H (1.6-8.9) K/mcL BMP 07/11/18 18:12 Sodium 138 Potassium 3.6 Chloride 101 Carbon Dioxide 30 H BUN 21 Creatinine 0.95 Glucose 105 Calcium 9.3 Cardiac Enzymes 07/11/18 Range/Units 18:12 Troponin I < 0.03 (< 0.04) ng/mL - Impressions ITS Impressions Chest X-Ray 07/11/18 17:37 IMPRESSION: No acute cardiopulmonary disease. D/ / 07/11/2018 18:57:09 Bakari Tinoco MD / rosa Interpreting Provider: Bakari Tinoco MD - Assessment and plan (1) Acute exacerbation of chronic obstructive airways disease Current Visit: Yes Status: Acute Assessment and plan: Pt recent had PNA was treated with oral Levaquin as outpatient and finished the course. Presented with sob,hypoxia, and frequent falls. Labs showed mildly elevated WBC, BNP and CO2. CXR normal. found to have episodic hypoxia at the ED. - will treated with acute bronchitis with IV Zithromax given elevated WBC, fever, and cough but normal CXR. - Continue home meds for COPD, add duoneb scheduled and as needed, started on oral steroids. - Blood cx and sputum cx if can obtain. (2) Acute on chronic respiratory failure with hypoxia Current Visit: Yes Status: Acute Assessment and plan: same as above (3) Dystonia Current Visit: Yes Status: Acute Assessment and plan: Pt reported chronic dystonia but has worsened recently. will consult neuro. (4) Frequent falls Current Visit: Yes Status: Acute Assessment and plan: fall precaution, PT/OT. (5) Tobacco dependence Current Visit: No Status: Chronic Assessment and plan: smoking cessation education. (6) DVT prophylaxis Current Visit: Yes Status: Acute Assessment and plan: heparin sq. - Time Spent With Patient Total time spent is greater than 50% in coordination of care (as documented) at patient's floor/unit and/or counseling patient: Greater than 35 minutes
[2018-07-11] MEDS: traMADol 50 MG TABLET PO PRN (21:48)
[2018-07-11] MEDS: Azithromycin 500 MG in D5% in Water 250 ML IVPB SCH (21:48)
[2018-07-11] MEDS: Ipratropium/Albuterol Neb 3 ML IH SCH (23:16)
[2018-07-11] MEDS: Budesonide/Formoterol 160/4.5 1 PUFF INH IH SCH (23:16)
[2018-07-11] MEDS ORDERED: Gabapentin 400 MG CAPSULE PO ONE (23:19)
[2018-07-12] MEDS: *HR* Heparin 5,000 UNIT/ML VIAL SQ SCH ×2 (00:01→17:54)
[2018-07-12] MEDS: Ipratropium/Albuterol Neb 3 ML IH SCH ×6 (04:16→23:34)
[2018-07-12 05:44] LABS: Hematocrit 27.9 % (35.3-44.9); Hemoglobin 8.3 g/dL (11.5-15.4); Mean Corpuscular HGB Conc 29.7 g/dL (31.6-35.5); Mean Corpuscular Volume 80.6 fL (83.0-100.0); Platelet Count 253 K/mcL (140-400); Red Blood Count 3.46 M/mcL (3.82-4.97); Red Cell Distribution Width 17.4 % (11.5-14.5)
[2018-07-12 06:07] LABS: BUN/Creatinine Ratio 26 (6-26); Blood Urea Nitrogen 19 mg/dL (8-23); Calcium 8.8 mg/dL (8.6-10.3); Carbon Dioxide 26 mEq/L (23-29); Chloride 109 mEq/L (98-107); Glucose 123 mg/dL (70-105); Osmolality,Calculated 294 (280-300); Sodium 140 mEq/L (136-145); eGFR For Non-African Americans > 60 (> 60)
[2018-07-12] MEDS: Budesonide/Formoterol 160/4.5 1 PUFF INH IH SCH ×2 (07:47→19:57)
[2018-07-12] MEDS ORDERED: predniSONE 20 MG TABLET PO SCH (08:00)
--- NOTE | 2018-07-12 09:10 | Neurology - Consult Note ---
<Felix Bronson - Last Filed: 07/12/18 13:37> Date of Encounter: 07/12/18 Time of Encounter: 09:09 Assessment and Plan (1) Dystonia Current Visit: Yes Status: Acute - Patient reports that she has chronic dystonia; this has recently worsened - She noted that she has fallen approximately 10 times since the day leading up to the admission - Patient denies having any loss of consciousness or injury - Patient reports serious pain in her knees bilaterally, especially her right knee - Pain is significantly worse with palpation Plan: - Patient has been placed on fall precautions - PT OT has been consulted - We will order MRI of the brain and head - Recommend imaging of the knees and possible joint tap to rule out infection (2) COPD exacerbation Current Visit: No Status: Acute - Management per primary team (3) Hypertension Current Visit: Yes Status: Acute - Management per primary team Qualifiers: Qualified Code(s): I10 - Essential (primary) hypertension History of Present Illness HPI: Arely Arce is a 63-year-old female with PMH of COPD on home O2, HTN who presented to [facility] ED on 07/11/18 with a chief complaint of hypoxia. Patient is a poor historian; was accompanied by her daughter. Reported that approximately one week ago, patient saw her PCP, was diagnosed clinically with pneumonia and was started on Levaquin. She has been taking Levaquin for one week, but reports that her shortness of breath has worsened and that she has become more fatigued. She also reported having fallen down 10 times since the day prior to admission. She reported weakness, but stated that there is no loss of consciousness or injury. Upon arrival to the emergency department, patients vital signs were significant for an elevated heart rate at 103 bpm, and elevated respiratory rate 20/m. Laboratory analysis demonstrated an elevated white count at 13 with left shift, and an elevated BNP at 203. Patient was seen and examined at bedside. She reports that she has serious pain in her knees bilaterally. Pain is worse in the right knee, and is exacerbated by palpation and when trying to bear weight on her feet. She also reports intermittent spasticity when she has been in the hospital. This primarily has occurred in her hands, and has been happening in her knees for the last couple days. She says that this is responsible for her falls. Denies any direct trauma to the area. Denies weakness, numbness, tingling, paresthesias, dizziness, vertigo, headache, or visual disturbances. She has no further complaints at this time. Past Med Surg Social Fam HX - Past Medical History Medical history: COPD, hypertension Additional medical history: emphysema Psychiatric history: no psych history - Past Surgical History Surgical History: cholecystectomy, hysterectomy Additional surgical history: breast biopsy, bone spur surgery - Social History Smoking Status: Current every day smoker Packs per day: 1-1.5 Smokeless Tobacco Status: No Alcohol use: none Drug use: none - Family History Mother Hx Family Respiratory Disorders: Yes (lung cancer, copd,) Hx Family Cancer: Yes (Lung CA) Hx Family Neurologic Disorders: Yes (brain aneuryism) Medications and Allergies Albuterol Sulfate [Proair Hfa] 2 puff IH Q4H PRN 10/14/17 [History] Budesonide/Formoterol 160/4.5 [Symbicort 160/4.5] 2 puff IH BIDR 10/14/17 [History] Cyclobenzaprine [Flexeril] 10 mg PO BID 10/14/17 [History] Gabapentin [Neurontin] 800 mg PO QID 10/14/17 [History] Lisinopril [Zestril] 5 mg PO DAILY 10/14/17 [History] Meloxicam [Mobic] 15 mg PO DAILY 10/14/17 [History] Omeprazole [PriLOSEC] 40 mg PO DAILY 10/14/17 [History] OxyCODONE/APAP 5/325 [Percocet 5/325 MG] 1 tab PO 2-3XD PRN 10/14/17 [History] Promethazine [Phenergan] 12.5 mg PO Q6HR PRN 10/14/17 [History] hydrOXYzine HCl [Hydroxyzine HCl] 25 mg PO QID PRN 10/14/17 [History] traZODone [TraZODone] 50 - 150 mg PO HS 10/14/17 [History] Allergy/AdvReac Type Severity Reaction Status Date / Time acetaminophen [From Vicodin] AdvReac See Verified 10/13/17 22:14 Comments ceftriaxone [From Rocephin] AdvReac See Verified 10/13/17 22:14 Comments diazepam [From Valium] AdvReac See Verified 10/13/17 22:14 Comments hydrocodone [From Vicodin] AdvReac See Verified 10/13/17 22:14 Comments Methadone AdvReac See Verified 10/13/17 22:14 Comments morphine AdvReac Agitated Verified 10/13/17 22:14 All Systems: The remainder of the systems were reviewed and are negative - Constitutional Constitutional ROS IM: as per HPI - Musculoskeletal Musculoskeletal ROS IM: as per HPI, no myalgias, no numbness, no tingling Musculoskeletal: bilateral: knee pain, knee stiffness - Neurological Neurological ROS: as per HPI, abnormal gait, no dizziness, no focal weakness, no sensory deficit, no tingling, no tremor(s), no vertigo, no weakness Physical Examination - Vital Signs Vital Signs: Initial Vital Signs Temp Pulse Resp BP Pulse Ox 98.7 F 103 20 130/81 86 07/11/18 17:32 07/11/18 17:32 07/11/18 17:32 07/11/18 17:32 07/11/18 17:32 - Constitutional General appearance: comfortable - Neurologic Sensorimotor examination: intact Motor examination - right side: 5/5: deltoids, biceps, triceps, wrist flexion, wrist extension, destination sign repairer, toe extension (EHL), plantarflexion Motor examination - left side: 5/5: deltoids, biceps, triceps, wrist flexion, wrist extension, destination sign repairer, toe extension (EHL), plantarflexion Detailed sensory examination: intact Reflex and gait examination: intact Reflexes: Brachioradialis: 2+, Patella: 2+ Mental Status Examination: awake, alert, oriented to person, oriented to place, oriented to time, follows commands appropriately, answers questions appropriately Cranial nerve examination: PERRL, EOMI, visual james intact Results - Laboratory Findings CBC and BMP: 07/12/18 04:43 07/12/18 04:43 Abnormal lab findings: Abnormal lab results RBC 3.46 M/mcL (3.82-4.97) L 07/12/18 04:43 Hgb 8.3 g/dL (11.5-15.4) L D 07/12/18 04:43 Hct 27.9 % (35.3-44.9) L 07/12/18 04:43 MCV 80.6 fL (83.0-100.0) L 07/12/18 04:43 MCH 24.0 pg (28.0-33.3) L 07/12/18 04:43 MCHC 29.7 g/dL (31.6-35.5) L 07/12/18 04:43 RDW 17.4 % (11.5-14.5) H 07/12/18 04:43 Neutrophils # 10.8 K/mcL (1.6-8.9) H 07/11/18 18:12 Chloride 109 mEq/L (98-107) H 07/12/18 04:43 Glucose 123 mg/dL (70-105) H 07/12/18 04:43 B-Natriuretic Peptide 203 pg/mL (Less than 100) H 07/11/18 18:12 Consult Discharge Plan - Plan Referrals: Bill Mckeon DO [Primary Care Provider] - <Miki Funk - Last Filed: 07/12/18 15:09> Date of Encounter: 07/12/18 Time of Encounter: 14:59 Assessment and Plan (1) Frequent falls Current Visit: Yes Status: Acute At this juncture I am not absolutely convinced of a neurologic etiology to explain this patient's frequent falls. She has normal alertness, normal strength bulk and tone of all 4 extremities. She does have giveaway weakness and has diffuse pain. I see no involuntary movements no atrophy. Romberg is negative. Her neurologic examination is essentially normal. I will obtain an MRI scan of the brain. Further recommendations will be made pending the MRI. History of Present Illness HPI: The chart was reviewed, the patient was seen and examined independently. Patient informs me that she is been admitted secondary to frequent falling. She does complain of intense bilateral knee pain however she states that the knee pain as a result of bruises sustained as a result of her falls. She falls without warning. She states that she is fallen down about 10 times since the day prior to admission. She complains of pain diffusely. Denies any numbness tingling or weakness of the face arms or legs. Denies any changes in her mental status. Denies any history of seizures. She does not lose consciousness when she falls. All Systems: The remainder of the systems were reviewed and are negative Review of Systems: The balance of the systems review is negative. Physical Examination - Vital Signs Vital Signs: Initial Vital Signs Temp Pulse Resp BP Pulse Ox 98.7 F 103 20 130/81 86 07/11/18 17:32 07/11/18 17:32 07/11/18 17:32 07/11/18 17:32 07/11/18 17:32 - Exam Exam: General Examination: *CONSTITUTIONAL: normal *GENERAL APPEARANCE OF PATIENT appears healthy and well groomed *EYES: pupils equal, round, reactive to light and accommodation, conjunctiva clear without masses or ulcerations, fundi normal. *CARDIOVASCULAR no peripheral edema, distal temperature normal, dorsalis pedis pulses normal. Refer to vital signs Musculoskeletal: *GAIT AND STATION normal, with normal Romberg testing, no abnormalities such as broad base gait or spasticity *ASSESSMENT OF MUSCLE STRENGTH IN THE UPPER AND LOWER EXTREMITIES diffuse give way weakness of all 4 extremities. *MUSCLE TONE IN THE UPPER AND LOWER EXTREMITIES normal. No abnormal movements, fasciculations or atrophy identified. Neurological: *ORIENTATION to time and place *RECURRENT AND REMOTE MEMORY intact *ATTENTION AND CONCENTRATION are normal *LANGUAGE FUNCTION no significant aphasia or dysarthia was noted. *FUND OF KNOWLEDGE aware of current events, past history, vocabulary *MENTAL attention span and concentration normal. *CN II optic fundi were normal, no papilledema noted. *CN III,IV, PERRLA extraocular eye movements were full, no nystagmus and no ptosis noted. *CN V shows normal sensation and jaw opens symmetrically. *CN VII shows normal facial movement symmetrically, upper and lower bilaterally. *CN VIII shows no significant hearing loss on examination in the office. *CN IX,,X palate elevated symmetrically and normal gag reflex was noted. *CN XI normal strength in the sternocleidomastoid muscles, symmetrical shoulder shrugging. *CN XII tongue protruded in the midline, with normal strength and movement. *SENSORY EXAMINATION pinprick sensation intact, and light touch(vibration sense). *REFLEXES: deep tendon reflexes were normal and symmetrical , grade 2/4 diffusely, no pathological reflexes were noted. *CEREBELLAR TESTING normal finger to nose, heel/knee/ferro, and tandem walk. Results - Laboratory Findings CBC and BMP: 07/12/18 04:43 07/12/18 04:43 Abnormal lab findings: Abnormal lab results RBC 3.46 M/mcL (3.82-4.97) L 07/12/18 04:43 Hgb 8.3 g/dL (11.5-15.4) L D 07/12/18 04:43 Hct 27.9 % (35.3-44.9) L 07/12/18 04:43 MCV 80.6 fL (83.0-100.0) L 07/12/18 04:43 MCH 24.0 pg (28.0-33.3) L 07/12/18 04:43 MCHC 29.7 g/dL (31.6-35.5) L 07/12/18 04:43 RDW 17.4 % (11.5-14.5) H 07/12/18 04:43 Neutrophils # 10.8 K/mcL (1.6-8.9) H 07/11/18 18:12 Chloride 109 mEq/L (98-107) H 07/12/18 04:43 Glucose 123 mg/dL (70-105) H 07/12/18 04:43 B-Natriuretic Peptide 203 pg/mL (Less than 100) H 07/11/18 18:12
[2018-07-12] MEDS ORDERED: Albuterol 2.5 MG/3 ML NEBULIZER IH PRN (09:16)
[2018-07-12] MEDS: traMADol 50 MG TABLET PO PRN (09:48)
--- NOTE | 2018-07-12 09:52 | Internal Med Progress Note ---
<Onur Henao - Last Filed: 07/12/18 15:37> Hospitalist Progress Note - Encounter Date of Encounter: 07/12/18 Time of Encounter: 09:50 - Subjective Interval History: Arely Arce is a 63-year-old female with PMH of COPD on home O2, HTN who presented to [facility] ED on 07/11/18 with a chief complaint of hypoxia. Patient is a poor historian; Reported that approximately one week ago, patient saw her PCP, was diagnosed clinically with pneumonia and was started on Levaquin. She has been taking Levaquin for one week, but reports that her shortness of breath has worsened and that she has become more fatigued. She also reported having fallen down 12 times since the day prior to admission. She reported weakness, but stated that there is no loss of consciousness or injury. Upon arrival to the emergency department, patients vital signs were significant for an elevated heart rate at 103 bpm, and elevated respiratory rate 20/m. Laboratory analysis demonstrated an elevated white count at 13 with left shift, and an elevated BNP at 203. Upon initial evaluation patient sitting upright in hospital bed awake, alert and oriented, engaged to conversation, answers questions appropriately, in no acute distress, without focal neurological deficit. Patient admits to headache (states that she hit her head moving to the x-ray machine), fever/chills, shortness of breath, productive cough, midline abdominal tenderness, chronic neck/back pain and severe bilateral knee pain. Patient denies vision change, tinnitus, chest pain, abdominal pain/nausea/vomiting, diarrhea/constipation, hematuria, hematochezia. - Exam Vitals: Temp Pulse Resp BP Pulse Ox 97.8 F 91 17 159/81 93 07/12/18 06:42 07/12/18 06:42 07/12/18 06:42 07/12/18 06:42 07/12/18 09:36 Exam: PHYSICAL EXAMINATION: GENERAL APPEARANCE: The patient is alert, oriented and in no acute distress. HEENT: Head is normocephalic. Atraumatic NECK: Trachea midline HEART: Regular rate and rhythm. LUNGS: Expiratory wheezing noted in the upper right lung otherwise clear to auscultation ABDOMEN: Soft, nondistended with good bowel sounds heard. There is midline abdominal tenderness noted which patient states is due to potential hernia. EXTREMITIES: Without cyanosis, clubbing or edema. NEUROLOGICAL: Patient without abnormality of tone, moving all 4 extremities spontaneously, pulse motor and sensation are intact SKIN: Warm and dry without any rash, bruises or - Summary of Assessment and Plan Summary of Assessment and Plan: (1) Acute exacerbation of chronic obstructive airways disease Current Visit: Yes Status: Acute Assessment and plan: Pt treated for pneumonia with oral Levaquin as outpatient and finished course. Presented with sob, hypoxia, and frequent falls. Labs showed mildly elevated WBC, BNP and CO2. CXR normal. found to have episodic hypoxia at the ED when on room air. - IV Zithromax for acute bronchitis given elevated WBC, fever, and cough but normal CXR. - Continue home meds for COPD, add duoneb scheduled and as needed - Prednisone QD - Iron Panel qAM (2) Acute on chronic respiratory failure with hypoxia Current Visit: Yes Status: Acute Assessment and plan: Same as above (3) Dystonia Current Visit: Yes Status: Acute Assessment and plan: Pt reported chronic dystonia but has worsened recently. Neurology consulted and is following. (4) Frequent falls Current Visit: Yes Status: Acute Assessment and plan: - Fall precautions, PT/OT. - CT Head/Brain d/t concern for AMS in the setting of repeated falls and unknown head trauma (5) Tobacco dependence Current Visit: No Status: Chronic Assessment and plan: Smoking cessation education. (6) DVT prophylaxis Current Visit: Yes Status: Acute Assessment and plan: Heparin sq. - Time Spent with Patient Total time spent is greater than 50% in coordination of care (as documented) at patient's floor/unit and/or counseling patient: Internal Medicine: Result - Labs CBC & Chem 7: 07/12/18 04:43 07/12/18 04:43 Labs: Short CBC 07/11/18 07/12/18 Range/Units 18:12 04:43 WBC 13.0 H 8.0 (4.3-11.1) K/mcL Hgb 9.8 L 8.3 L D (11.5-15.4) g/dL Hct 33.7 L 27.9 L (35.3-44.9) % Plt Count 301 253 (140-400) K/mcL Neutrophils # 10.8 H (1.6-8.9) K/mcL BMP 07/11/18 07/12/18 18:12 04:43 Sodium 138 140 Potassium 3.6 4.0 Chloride 101 109 H Carbon Dioxide 30 H 26 BUN 21 19 Creatinine 0.95 0.72 Glucose 105 123 H Calcium 9.3 8.8 Cardiac Enzymes 07/11/18 Range/Units 18:12 Troponin I < 0.03 (< 0.04) ng/mL - Impressions Impressions Chest X-Ray 07/11/18 17:37 IMPRESSION: No acute cardiopulmonary disease. D/ / 07/11/2018 18:57:09 Bakari Tinoco MD / rosa Interpreting Provider: Bakari Tinoco MD Consult Discharge Plan - Plan Referrals: Bill Mckeon DO [Primary Care Provider] - <Noe Grayson - Last Filed: 07/12/18 18:47> Hospitalist Progress Note - Encounter Date of Encounter: 07/12/18 - Exam Vitals: Temp Pulse Resp BP Pulse Ox 98.7 F 99 18 152/79 97 07/12/18 18:32 07/12/18 18:32 07/12/18 18:32 07/12/18 18:32 07/12/18 18:32 - Assessment and Plan (1) Acute on chronic respiratory failure with hypoxia Current Visit: Yes Status: Acute (2) Tobacco dependence Current Visit: No Status: Chronic (3) Acute exacerbation of chronic obstructive airways disease Current Visit: Yes Status: Acute (4) Dystonia Current Visit: Yes Status: Acute (5) Frequent falls Current Visit: Yes Status: Acute (6) DVT prophylaxis Current Visit: Yes Status: Acute (7) Hypertension Current Visit: Yes Status: Chronic (8) Tobacco abuse Current Visit: Yes Status: Chronic - Time Spent with Patient Total time spent is greater than 50% in coordination of care (as documented) at patient's floor/unit and/or counseling patient: Internal Medicine: Result - Labs CBC & Chem 7: 07/12/18 04:43 07/12/18 04:43 Labs: Short CBC 07/12/18 Range/Units 04:43 WBC 8.0 (4.3-11.1) K/mcL Hgb 8.3 L D (11.5-15.4) g/dL Hct 27.9 L (35.3-44.9) % Plt Count 253 (140-400) K/mcL BMP 07/11/18 07/12/18 18:12 04:43 Sodium 138 140 Potassium 3.6 4.0 Chloride 101 109 H Carbon Dioxide 30 H 26 BUN 21 19 Creatinine 0.95 0.72 Glucose 105 123 H Calcium 9.3 8.8 Cardiac Enzymes 07/11/18 Range/Units 18:12 Troponin I < 0.03 (< 0.04) ng/mL - Impressions Impressions Chest X-Ray 07/11/18 17:37 IMPRESSION: No acute cardiopulmonary disease. D/ / 07/11/2018 18:57:09 Bakari Tinoco MD / rosa Interpreting Provider: Bakari Tinoco MD Head CT 07/12/18 13:00 IMPRESSION: No acute intracranial abnormality. Sinusitis on prior has cleared. D/ / Galen Salas MD / Galen Salas MD Interpreting Provider: Galen Salas MD - Attending Attestation I examined this patient and my medical decision-making was reviewed with the Resident Physician on 07/12/18. I agree with the documented findings, disposition and treatment plan as described except to the extent set forth below. Ms Arce is currently admitted for acute on chronic resp failure and exac COPD. She remains moderate to high risk due to potential for worsening clinical and respiratory status. Ms Arce is waiting to eat lunch. She wants more salt. Granddaughter concerned she is more confused. No fever or chills. No CP. Dyspnea seems to be improving some. No GI issues at this time. Exam alert Comfortable at rest Mucus membranes dry Heart reg and distant Lungs with scant end exp wheeze abd soft No edema I/P 1. Acute resp failure 2. COPD exacerbation 3. Falls 4. Dystonia Further diagnoses and plan as above. <Noe Grayson A - Last Filed: 07/12/18 18:47> (7) Hypertension Qualifiers: Hypertension type: essential hypertension Qualified Code(s): I10 - Essential (primary) hypertension
[2018-07-12] MEDS ORDERED: Ibuprofen 800 MG TABLET PO ONE (12:15)
[2018-07-12] MEDS ORDERED: Lidocaine Viscous Oral Soln 15 ML SOLUTION MM ONE (12:51)
[2018-07-12] MEDS: *HR* OxyCODONE/APAP 5/325 TABLET PO PRN (16:11)
[2018-07-12] MEDS: Azithromycin 500 MG in D5% in Water 250 ML IVPB SCH (22:28)
[2018-07-13] MEDS: *HR* OxyCODONE/APAP 5/325 TABLET PO PRN ×2 (00:17→10:31)
[2018-07-13] MEDS: Ipratropium/Albuterol Neb 3 ML IH SCH ×3 (04:52→11:30)
[2018-07-13] MEDS: *HR* Heparin 5,000 UNIT/ML VIAL SQ SCH (05:21)
[2018-07-13] MEDS ORDERED: Saline Nasal Spray 44 ML BOTTLE NS PRN (06:08)
[2018-07-13] MEDS: Budesonide/Formoterol 160/4.5 1 PUFF INH IH SCH (07:24)
[2018-07-13 08:03] VITALS: BP 152/77
[2018-07-13 08:06] LABS: VBG HCO3 28 mEq/L (21-27); VBG PCO2 53 mmHg (41-51); VBG PH 7.33 pH Units (7.32-7.42); VBG PO2 95 mmHg (25-50)
[2018-07-13 08:08] LABS: Basophils % 0.3 %; Eosinophils # 0.2 K/mcL (0.0-0.6); Eosinophils % 1.7 %; Hematocrit 27.7 % (35.3-44.9); Hemoglobin 8.1 g/dL (11.5-15.4); Immature Granulocytes % 0.4 % (0-4); Lymphocytes # 2.6 K/mcL (0.6-4.6); Lymphocytes % 26.9 %; Mean Corpuscular HGB Conc 29.2 g/dL (31.6-35.5); Mean Corpuscular Hemoglobin 24.2 pg (28.0-33.3); Mean Corpuscular Volume 82.7 fL (83.0-100.0); Mean Platelet Volume 10.3 fL (9.4-12.4); Monocytes # 0.7 K/mcL (0.0-1.3); Monocytes % 7.3 %; Neutrophils # 6.2 K/mcL (1.6-8.9); Platelet Count 235 K/mcL (140-400); Red Blood Count 3.35 M/mcL (3.82-4.97); Red Cell Distribution Width 17.5 % (11.5-14.5); Segmented Neutrophils % 63.4 %
[2018-07-13 08:24] LABS: Alanine Aminotransferase 11 Units/L (7-52); Albumin 3.4 g/dL (3.5-5.7); Albumin/Globulin Ratio 1.4 (1.1-2.2); Alkaline Phosphatase 64 Units/L (34-104); Aspartate Amino Transferase 14 Units/L (13-39); BUN/Creatinine Ratio 20 (6-26); Bilirubin,Total 0.3 mg/dL (0.3-1.0); Blood Urea Nitrogen 15 mg/dL (8-23); Carbon Dioxide 29 mEq/L (23-29); Chloride 108 mEq/L (98-107); Globulin 2.4 g/dL (2.4-3.5); Glucose 90 mg/dL (70-105); Iron < 10 mcg/dL (50-170); Osmolality,Calculated 288 (280-300); Potassium 3.9 mEq/L (3.5-5.1); Sodium 139 mEq/L (136-145); Total Protein 5.8 g/dL (6.4-8.9); Transferrin 323 mg/dL (203-362); eGFR For Non-African Americans > 60 (> 60)
[2018-07-13] MEDS ORDERED: predniSONE 20 MG TABLET PO SCH (09:00)
--- NOTE | 2018-07-13 09:28 | Internal Med Progress Note ---
<AmandataurusmalenaOnur - Last Filed: 07/13/18 11:43> Hospitalist Progress Note - Encounter Date of Encounter: 07/13/18 Time of Encounter: 09:23 - Subjective Interval History: Arely Arce is a 63-year-old female with PMH of COPD NON-COMPLIANT with home O2, HTN who presented to [facility] ED on 07/11/18 with a chief complaint of hypoxia. Patient is a poor historian; Reported that approximately one week ago, patient saw her PCP, was diagnosed clinically with pneumonia and was started on Levaquin. She has been taking Levaquin for one week, but reports that her shortness of breath has worsened and that she has become more fatigued. She also reported having fallen down 12 times since the day prior to admission. She reported weakness, but stats that there was no loss of consciousness or other injury. Upon arrival to the emergency department, patients vital signs were significant for an elevated heart rate at 103 bpm, and elevated respiratory rate 20/m. Laboratory analysis demonstrated an elevated white count at 13 with left shift, and an elevated BNP at 203. Upon initial evaluation patient sitting upright in hospital bed awake, alert and oriented, engaged to conversation, answers questions appropriately, in no acute distress, without focal neurological deficit. Patient admits to headache, which she states is due to cough (productive: yellow/clear sputum), and chronic neck/back pain and severe bilateral knee pain which she states is currently well-managed on percocet. Patient also admits to itching in her face 2/2 percocet but denies SOB. Patient denies vision change, tinnitus, chest pain, abdominal pain/nausea/vomiting, diarrhea/constipation, hematuria, hematochezia, numbness, weakness or paresthesias. Patient states that she is "ready to go home". - Exam Vitals: Temp Pulse Resp BP Pulse Ox 98.9 F 87 18 152/77 98 07/13/18 08:02 07/13/18 08:02 07/13/18 08:02 07/13/18 08:02 07/13/18 08:02 Exam: PHYSICAL EXAMINATION: GENERAL APPEARANCE: The patient is awake, alert, oriented, and in no acute distress. HEENT: Head is normocephalic. Atraumatic NECK: Trachea midline HEART: Regular rate and rhythm, no murmurs, gallops, or rubs appreciated. LUNGS: Expiratory wheezing noted in the upper right lung james. Otherwise clear to auscultation ABDOMEN: Soft, non-tender, nondistended with present bowel sounds. EXTREMITIES: Without cyanosis, clubbing or edema. NEUROLOGICAL: Patient without abnormality of tone, moving all 4 extremities spontaneously, pulse, motor, and sensation are intact SKIN: Warm and dry without any rash, bruises or bleeding in visualized areas. DVT Prophylaxis: Heparin 5,000 units SQ Q12H - Summary of Assessment and Plan Summary of Assessment and Plan: Acute exacerbation of chronic obstructive airways disease Current Visit: Yes Status: Acute Assessment and plan: Pt treated for pneumonia by pcp with Levaquin approximately 1 week ago. Presented developed sob, hypoxia, and multiple falls with up to 12 falls on day prior to admission. Patient has consistent episodes of hypoxia when on room air. - IV Zithromax for acute bronchitis given elevated WBC, fever, and cough but normal CXR. - Continue home meds for COPD, add duoneb scheduled and PRN - Prednisone QD Acute on chronic respiratory failure with hypoxia Current Visit: Yes Status: Acute Assessment and plan: Same as above Microcytic anemia Current Visit: Yes Status: Acute Assessment and Plan: HGB 8.1 with HCT 27.7: MCV is 82.7 Iron study this AM shows Iron level <10 - will replace today with Venofer 200mg IV Will perform Hemocult testing and obtain GI consultation once resulted for further workup for potential source of anemia Dystonia Current Visit: Yes Status: Acute Assessment and plan: Pt reported chronic dystonia but has worsened recently. Neurology consulted and is following. Frequent falls Current Visit: Yes Status: Acute Assessment and plan: Fall precautions, PT/OT. CT Head/Brain d/t concern for AMS in the setting of repeated falls and unknown head trauma showed No acute intracranial abnormality. MRI head/brain unable to be performed until tomorrow per nursing notes Neurology consulted and is following. Polypharmacy Current Visit: Yes Status: Chronic Assessment and Plan: Patient takes several medications which may cause AMS and falls, including gabapentin, percocet, flexeril Patient will need medications reconciled upon d/c to lowest effective dosages Tobacco dependence Current Visit: No Status: Chronic Assessment and plan: 1/2 ppd x 45 years Smoking cessation education. DVT prophylaxis Current Visit: Yes Status: Acute Assessment and plan: 5,000 units SQ Q12H. - Time Spent with Patient Total time spent is greater than 50% in coordination of care (as documented) at patient's floor/unit and/or counseling patient: Internal Medicine: Result - Labs CBC & Chem 7: 07/13/18 07:47 07/13/18 07:47 Labs: Short CBC 07/13/18 Range/Units 07:47 WBC 9.8 (4.3-11.1) K/mcL Hgb 8.1 L (11.5-15.4) g/dL Hct 27.7 L (35.3-44.9) % Plt Count 235 (140-400) K/mcL Neutrophils # 6.2 (1.6-8.9) K/mcL BMP 07/13/18 07:47 Sodium 139 Potassium 3.9 Chloride 108 H Carbon Dioxide 29 BUN 15 Creatinine 0.75 Glucose 90 Calcium 9.0 Liver Function 07/13/18 Range/Units 07:47 Total Bilirubin 0.3 (0.3-1.0) mg/dL AST 14 (13-39) Units/L ALT 11 (7-52) Units/L Alkaline Phosphatase 64 (34-104) Units/L Albumin 3.4 L (3.5-5.7) g/dL - Impressions Impressions Head CT 07/12/18 13:00 IMPRESSION: No acute intracranial abnormality. Sinusitis on prior has cleared. D/ / Galen Salas MD / Galen Salas MD Interpreting Provider: Galen Salas MD Consult Discharge Plan - Plan Additional Instructions: Please be evaluated by a medical professional as soon as possible Referrals: Bill Mckeon DO [Primary Care Provider] - <Noe Grayson - Last Filed: 07/13/18 17:53> Hospitalist Progress Note - Encounter Date of Encounter: 07/13/18 - Exam Vitals: Temp Pulse Resp BP Pulse Ox 98.9 F 87 16 152/77 91 07/13/18 08:02 07/13/18 08:02 07/13/18 11:30 07/13/18 08:02 07/13/18 13:28 - Assessment and Plan (1) Acute on chronic respiratory failure with hypoxia Status: Acute (2) Acute exacerbation of chronic obstructive airways disease Status: Acute (3) Dystonia Status: Acute (4) Frequent falls Status: Acute (5) Hypertension Status: Chronic (6) Tobacco abuse Status: Chronic (7) Anemia Status: Suspected (8) Polypharmacy Status: Chronic - Time Spent with Patient Total time spent is greater than 50% in coordination of care (as documented) at patient's floor/unit and/or counseling patient: Internal Medicine: Result - Labs CBC & Chem 7: 07/13/18 07:47 07/13/18 07:47 Labs: Short CBC 07/13/18 Range/Units 07:47 WBC 9.8 (4.3-11.1) K/mcL Hgb 8.1 L (11.5-15.4) g/dL Hct 27.7 L (35.3-44.9) % Plt Count 235 (140-400) K/mcL Neutrophils # 6.2 (1.6-8.9) K/mcL BMP 07/13/18 07:47 Sodium 139 Potassium 3.9 Chloride 108 H Carbon Dioxide 29 BUN 15 Creatinine 0.75 Glucose 90 Calcium 9.0 Liver Function 07/13/18 Range/Units 07:47 Total Bilirubin 0.3 (0.3-1.0) mg/dL AST 14 (13-39) Units/L ALT 11 (7-52) Units/L Alkaline Phosphatase 64 (34-104) Units/L Albumin 3.4 L (3.5-5.7) g/dL - Attending Attestation Please see discharge summary of this date. She left AMA. <Noe Grayson - Last Filed: 07/13/18 17:53> (5) Hypertension Qualifiers: Hypertension type: essential hypertension Qualified Code(s): I10 - Essential (primary) hypertension (7) Anemia Qualifiers: Anemia type: iron deficiency Iron deficiency anemia type: chronic blood loss Qualified Code(s): D50.0 - Iron deficiency anemia secondary to blood loss (chronic)
[2018-07-13] MEDS ORDERED: Iron Sucrose Complex 200 MG in 0.9 % Sodium Chloride 100 ML IVPB SCH (10:00)
--- NOTE | 2018-07-13 11:22 | Neurology Progress Note ---
Date of Encounter: 07/13/18 Time of Encounter: 11:20 Assessment and Plan (1) Frequent falls Current Visit: Yes Status: Acute I am increasingly suspicious that this patient's recurrent falls are more than likely elective to either mechanical etiologies, or perhaps even secondary to medication effect. She is on several pain medications that might alter mental as well as motor function. She denies alcohol use. However her MRI exam is yet pending. I would like to obtain the MRI to rule out a small cerebellar infarct or perhaps evidence of a cortical or cerebellar atrophy which might help to explain the falls. If the MRI scan is unrevealing then my ultimate conclusion be that her falls are due to and non-neurologic etiologies, as mentioned above along with deconditioning. Subjective Interval history: The chart was reviewed, the patient was seen and examined. Patient was lying at the foot of her bed upon my entering the room. She was awake and alert. She is able to follow commands and answers questions appropriately. She has had no further falls since admission. MRI scan of the brain however is still pending. She has no new complaints. Vital signs are stable, she is afebrile. Objective - Constitutional Vitals: Temp Pulse Resp BP Pulse Ox 98.9 F 87 18 152/77 98 07/13/18 08:02 07/13/18 08:02 07/13/18 08:02 07/13/18 08:02 07/13/18 08:02 - Neurological Exam Sensorimotor examination: Present: intact Motor examination - left side: 5/5: deltoids, biceps, triceps, wrist flexion, wrist extension, terrazzo mechanic helper, toe extension (EHL), plantarflexion Sensation intact: Present: intact Reflex and gait examination: intact Mental Status Examination: Present: awake, alert, oriented to person, oriented to place, oriented to time, follows commands appropriately, answers questions appropriately Cranial nerve examination: Present: PERRL, EOMI, visual james intact Results - Laboratory Findings CBC and BMP: 07/13/18 07:47 07/13/18 07:47 Abnormal lab findings: Abnormal lab results RBC 3.35 M/mcL (3.82-4.97) L 07/13/18 07:47 Hgb 8.1 g/dL (11.5-15.4) L 07/13/18 07:47 Hct 27.7 % (35.3-44.9) L 07/13/18 07:47 MCV 82.7 fL (83.0-100.0) L 07/13/18 07:47 MCH 24.2 pg (28.0-33.3) L 07/13/18 07:47 MCHC 29.2 g/dL (31.6-35.5) L 07/13/18 07:47 RDW 17.5 % (11.5-14.5) H 07/13/18 07:47 VBG pCO2 53 mmHg (41-51) H 07/13/18 07:58 VBG pO2 95 mmHg (25-50) H 07/13/18 07:58 VBG HCO3 28 mEq/L (21-27) H 07/13/18 07:58 Chloride 108 mEq/L (98-107) H 07/13/18 07:47 Iron < 10 mcg/dL (50-170) L 07/13/18 07:47 B-Natriuretic Peptide 203 pg/mL (Less than 100) H 07/11/18 18:12 Serum Total Protein 5.8 g/dL (6.4-8.9) L 07/13/18 07:47 Albumin 3.4 g/dL (3.5-5.7) L 07/13/18 07:47 Consult Discharge Plan - Plan Referrals: Bill Mckeon DO [Primary Care Provider] -
[2018-07-13] MEDS ORDERED: NON-FORMULARY MEDICATION 1 EACH EACH (Omeprazole [Prilosec] 40 MG) PO SCH (12:45)
[2018-07-13] MEDS ORDERED: NON-FORMULARY MEDICATION 1 EACH EACH (Meloxicam [Mobic] 15 MG) PO SCH (12:45)
--- NOTE | 2018-07-13 14:09 | Discharge Summary ---
<Onur Henao - Last Filed: 07/13/18 15:34> - NOTES TO OUTPATIENT PROVIDER Notes to Outpatient Provider: Highly recommend patient to follow up with pcp or seek medical attention as she left AMA from hospital Orders not resulted at time of discharge: Pending orders 07/13/18 09:53 Fecal Hemoccult [Occult Blood,Stool] [BF] Routine 07/12/18 15:12 MR head/brain wo con [MR] Routine Date of Encounter: 07/13/18 Time of Encounter: 14:05 - Discharge Diagnosis (1) Acute on chronic respiratory failure with hypoxia Priority: Primary Status: Acute (2) Acute exacerbation of chronic obstructive airways disease Priority: Primary Status: Acute (3) Hypoxia Priority: Primary Status: Acute (4) Frequent falls Priority: Primary Status: Acute (5) Microcytic anemia Priority: Primary Status: Acute (6) Polypharmacy Priority: Secondary Status: Chronic Hospital course: Ms. Arce is a 63 year old female presenting to [facility] on July 11 due to acute respiratory failure associated with frequent falls. Patient has a history of chronic COPD and is noncompliant with home oxygen use, and was recently diagnosed and treated for pneumonia by her primary care physician. Patient chest x-ray read as normal and started on IV azithromycin for acute bronchitis given clinical presentation as well as elevated white blood cell count, fever, and cough. Patient was started on scheduled and as needed DuoNeb therapy as well as prednisone for these symptoms. CT scan of the head /brain showed no acute intracranial pathology. Neurology consultation was obtained and patient was scheduled for an MRI on 07/14/2018 for further evaluation of potential etiology for her falling. Patient was found to have a microcytic anemia with low hemoglobin and hem atocrit. Iron profile showed patient's iron level to be less than 10 and was started on iron replacement with Venofer 200 mg IV daily. Hemoccult stool guaiac test was ordered and plans to consult gastroenterology for further evaluation of potential source of microcytic anemia pending based on result. I have discussed my recommendations at length with the patient to remain in the hospital including the need for further evaluation of her anemia, brain MRI, and any further evaluations or therapy as recommended by gastroenterology or neurology. The patient verbalizes her understanding of these concerns and the possible risks of leaving including worsening of her respiratory status, continued falls, or worsening of her anemia causing severe illness, injury, or even . Patient verbalizes her understanding of these risks and reaffirms her desire to leave the hospital AGAINST MEDICAL ADVICE and will sign documentation confirming this Discharge discussed with: patient - Time Spent with Patient Total time spent providing and/or coordinating discharge services: - Discharge Medications Home Medications: Albuterol Sulfate [Proair Hfa] 2 puff IH Q4H PRN 10/14/17 [History] Budesonide/Formoterol 160/4.5 [Symbicort 160/4.5] 2 puff IH BIDR 10/14/17 [History] Cyclobenzaprine [Flexeril] 10 mg PO BID 10/14/17 [History] Gabapentin [Neurontin] 800 mg PO QID 10/14/17 [History] Lisinopril [Zestril] 5 mg PO DAILY 10/14/17 [History] Meloxicam [Mobic] 15 mg PO DAILY 10/14/17 [History] Omeprazole [PriLOSEC] 40 mg PO DAILY 10/14/17 [History] OxyCODONE/APAP 5/325 [Percocet 5/325 MG] 2 tab PO 2-3XD PRN 10/14/17 [History] Promethazine [Phenergan] 12.5 mg PO PRN PRN 10/14/17 [History] hydrOXYzine HCl [Hydroxyzine HCl] 25 mg PO QID PRN 10/14/17 [History] traZODone [TraZODone] 50 - 150 mg PO HS 10/14/17 [History] Allergies/Adverse Reactions: Allergy/AdvReac Type Severity Reaction Status Date / Time acetaminophen [From Vicodin] AdvReac See Verified 10/13/17 22:14 Comments ceftriaxone [From Rocephin] AdvReac See Verified 10/13/17 22:14 Comments diazepam [From Valium] AdvReac See Verified 10/13/17 22:14 Comments hydrocodone [From Vicodin] AdvReac See Verified 10/13/17 22:14 Comments Methadone AdvReac See Verified 10/13/17 22:14 Comments morphine AdvReac Agitated Verified 10/13/17 22:14 Date of admission: 07/11/18 20:00 Primary care physician: Bill Mckeon DO Consults: 07/13/18 07:28 OT [Consult to Occupational Therapy] [CONS] Routine Comment: Evaluate, develop and implement POC Reason for Consult: Frequent falls. Discharge planning Does patient have active BEDREST order?: No Is patient medically & hemodynamically stable?: Yes Patient assessed for mobility or mobilized this visit?: Yes 07/11/18 21:14 Consult to Neurology [CONS] Routine Consulting Provider: [facility] Reason for Consult: dystonia and ataxia Call Completed: No 07/11/18 21:30 PT [Consult to Physical Therapy] [CONS] Routine Comment: Evaluate, develop and implement POC Reason for Consult: dystonia, fall Does patient have active BEDREST order?: No Is patient medically & hemodynamically stable?: Yes Patient assessed for mobility or mobilized this visit?: No 07/11/18 23:09 Consult to Adoption Agent [CONS] Routine Reason for SW Consult: DC planning Discharging clinician: Onur Henao Anticipated date of discharge: 07/13/18 - Constitutional Vitals: Temp Pulse Resp BP Pulse Ox 98.9 F 87 18 152/77 91 07/13/18 08:02 07/13/18 08:02 07/13/18 08:02 07/13/18 08:02 07/13/18 13:28 General appearance: Present: cooperative, A&O X 3, answers questions tracie ropriately Exam: . - Patient Status Disposition: Left Against Medical Advice Condition: Serious - Discharge Instructions Follow Up With: Bill Mckeon DO [Primary Care Provider] - Additional Instructions: Please be evaluated by a medical professional as soon as possible <Noe rGayson - Last Filed: 07/13/18 16:24> Orders not resulted at time of discharge: Pending orders 07/13/18 09:53 Fecal Hemoccult [Occult Blood,Stool] [BF] Routine 07/12/18 15:12 MR head/brain wo con [MR] Routine Date of Encounter: 07/13/18 - Discharge Diagnosis (1) Acute on chronic respiratory failure with hypoxia Status: Acute (2) Acute exacerbation of chronic obstructive airways disease Status: Acute (3) Dystonia Priority: Secondary Status: Acute (4) Frequent falls Status: Acute (5) Hypertension Priority: Secondary Status: Chronic Qualifiers: Hypertension type: essential hypertension Qualified Code(s): I10 - Essential (primary) hypertension (6) Tobacco abuse Priority: Secondary Status: Chronic (7) Anemia Priority: Secondary Status: Suspected Qualifiers: Anemia type: iron deficiency Iron deficiency anemia type: chronic blood loss Qualified Code(s): D50.0 - Iron deficiency anemia secondary to blood loss (chronic) (8) Polypharmacy Status: Chronic Hospital course: Ms. Arce is a 63 year old female - Time Spent with Patient Total time spent providing and/or coordinating discharge services: Date of admission: 07/11/18 20:00 Primary care physician: Bill Mckeon DO Consults: 07/13/18 07:28 OT [Consult to Occupational Therapy] [CONS] Routine Comment: Evaluate, develop and implement POC Reason for Consult: Frequent falls. Discharge planning Does patient have active BEDREST order?: No Is patient medically & hemodynamically stable?: Yes Patient assessed for mobility or mobilized this visit?: Yes 07/11/18 21:14 Consult to Neurology [CONS] Routine Consulting Provider: [facility] Reason for Consult: dystonia and ataxia Call Completed: No 07/11/18 21:30 PT [Consult to Physical Therapy] [CONS] Routine Comment: Evaluate, develop and implement POC Reason for Consult: dystonia, fall Does patient have active BEDREST order?: No Is patient medically & hemodynamically stable?: Yes Patient assessed for mobility or mobilized this visit?: No 07/11/18 23:09 Consult to Adoption Agent [CONS] Routine Reason for SW Consult: DC planning - Constitutional Vitals: Temp Pulse Resp BP Pulse Ox 98.9 F 87 16 152/77 91 07/13/18 08:02 07/13/18 08:02 07/13/18 11:30 07/13/18 08:02 07/13/18 13:28 - Attending Attestation I examined this patient and my medical decision-making was reviewed with the Resident Physician on 07/13/18. I agree with the documented findings, disposition and treatment plan as described except to the extent set forth below. Ms Arce has been admitted for recurrent falls and confusion. Today she is alert and oriented. She is requesting restart of all her meds. Review of meds shows many meds that can cause her symptoms. She is insistent on leaving today despite not having all her equipment for her oxygen and no coverage (SW was filling out paperwork for indigent coverage). We discussed her anemia and potential that she is bleeding and she replied "I would know if I was bleeding somewhere." She was ambulated and desaturated. Despite being told of the risks of , bleeding, hypoxia, falls and other potential issues with leaving today she insisted on going home. She was discharged AMA. Exam alert Oriented. Mucus membranes dry Heart not tachy No wheeze at this time Abd soft No edema Plan D/C AMA today. Suggest PCP follow up and review of meds for side effects Needs further work up of anemia (microcytic and iron low - take Meloxicam). This was relayed to patient. Needs to have oxygen all the time
--- NOTE | 2018-07-14 16:42 | Electrocardiograph Report ---
[address] [address] Test Date: 2018-07-11 Pat Name: Arely Arce Department: EXAM12 Room: 2A41 Gender: F Sand Analyst: : [id number] Requested By: Anthony Rivera Order Number: [id number] Reading MD: Cuba Peck Measurements Intervals [place] Rate: 97 P: 55 ND: 132 QRS: 43 QRSD: 85 T: 67 QT: 357 QTc: 454 Interpretive Statements Sinus rhythm Ventricular premature complex Electronically Signed On 07-14-2018 16:40:52 EST by Cuba Peck
== END 2018-07-13 14:15 | disposition left against medical advice (07) ==
LOC: EMEROOARM 17:26 → 2ANU 17:26 → SUATTDRO 20:00 → 2ANU 20:44
PROVIDERS: ADMIT Family Medicine; ATTEND Internal Medicine

== ENCOUNTER 2019-03-12 13:36 | Observation (INO) ==
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
[2019-03-12] MEDS ORDERED: *HR* LORazepam 0.5 MG TABLET PO ONE (14:30)
[2019-03-12 16:38] LABS: Bilirubin,Urine Negative (Negative); Blood,Urine Trace (Negative); Clarity,Urine Clear (Clear); Color,Urine Yellow (Yellow); Glucose,Urine (UA) Normal (Normal); Ketones,Urine 15 mg/dL (Negative); Leukocyte Esterase,Urine Negative (Negative); Nitrite,Urine Negative (Negative); Protein,Urine 30 mg/dL (Neg-Trace); Specific Gravity,Urine 1.018 (1.010-1.025); Urobilinogen,Urine Normal (Normal)
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
[2019-03-12 16:41] LABS: Bacteria,Urine None Seen per hpf (None-Few); Hyaline Casts,Urine None Seen per lpf (None-Few); RBC,Urine 0-3 per hpf (0-3); Squamous Epithelial Cell,Urine Many per lpf (None-Few); WBC,Urine 0-3 per hpf (0-3)
[2019-03-12 16:44] LABS: Basophils % 0.4 %; Eosinophils # 0.1 K/mcL (0.0-0.6); Eosinophils % 1.3 %; Hemoglobin 11.4 g/dL (11.5-15.4); Immature Granulocytes % 0.5 % (0-4); Lymphocytes # 1.3 K/mcL (0.6-4.6); Lymphocytes % 12.7 %; Mean Corpuscular Hemoglobin 26.2 pg (28.0-33.3); Mean Corpuscular Volume 87.4 fL (83.0-100.0); Mean Platelet Volume 10.9 fL (9.4-12.4); Monocytes # 0.7 K/mcL (0.0-1.3); Monocytes % 6.9 %; Neutrophils # 7.7 K/mcL (1.6-8.9); Platelet Count 252 K/mcL (140-400); Red Blood Count 4.35 M/mcL (3.82-4.97); Red Cell Distribution Width 17.1 % (11.5-14.5); Segmented Neutrophils % 78.2 %; White Blood Count 9.8 K/mcL (4.3-11.1)
[2019-03-12 16:54] LABS: BUN/Creatinine Ratio 21 (6-26); Blood Urea Nitrogen 15 mg/dL (8-23); Calcium 9.6 mg/dL (8.6-10.3); Carbon Dioxide 27 mEq/L (23-29); Chloride 108 mEq/L (98-107); Glucose 89 mg/dL (70-105); Osmolality,Calculated 294 (280-300); Potassium 3.7 mEq/L (3.5-5.1); Sodium 142 mEq/L (136-145); eGFR For African Americans > 60 (> 60); eGFR For Non-African Americans > 60 (> 60)
[2019-03-12 17:06] LABS: Prothrombin Time 11.4 Seconds (9.4-12.1)
[2019-03-12] MEDS ORDERED: 0.9 % Sodium Chloride 1,000 ML IVC ONE (18:57)
[2019-03-12] MEDS ORDERED: Naloxone 0.4 MG/ML INJ IVP PRN ×2 (19:54→21:57)
[2019-03-12] MEDS ORDERED: *HR* FentaNYL (PF) 100 MCG/2 ML VIAL IVP ONE (19:56)
[2019-03-12] MEDS ORDERED: Ondansetron 4 MG/2 ML VIAL IVP PRN (20:05)
[2019-03-12] MEDS ORDERED: 0.9 % Sodium Chloride 1,000 ML IVC SCH (20:15)
[2019-03-12] MEDS ORDERED: Acetaminophen 325 MG TABLET PO PRN (21:57)
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
[2019-03-13] MEDS ORDERED: *HR* Labetalol 20 MG/4 ML SYRINGE IVP ONE (00:46)
[2019-03-13 00:49] LABS: Amphetamine Screen,Urine Negative ng/mL (Cutoff=1000); Barbiturate Screen,Urine Negative ng/mL (Cutoff=200); Benzodiazepines Screen,Urine Negative ng/mL (Cutoff=200); Cannabinoid Screen,Urine Negative ng/mL (Cutoff = 50); Cocaine Screen,Urine Negative ng/mL (Cutoff= 300); Opiate Screen,Urine Negative ng/mL (Cutoff=300); Phencyclidine Screen,Urine Negative ng/mL (Cutoff=25)
[2019-03-13 06:49] VITALS: BP 158/92
--- NOTE | 2019-03-13 08:33 | Internal Med Progress Note ---
Hospitalist Progress Note - Encounter Date of Encounter: 03/13/19 Time of Encounter: 08:33 - Exam Vitals: Temp Pulse Resp BP Pulse Ox 98.5 F 97 17 158/92 90 03/13/19 06:48 03/13/19 06:48 03/13/19 06:48 03/13/19 06:48 03/13/19 06:48 - Assessment and Plan (1) Frequent falls Current Visit: Yes Status: Acute (2) Multiple bruises Current Visit: Yes Status: Acute (3) Myoclonic jerking Current Visit: Yes Status: Acute - Time Spent with Patient Total time spent is greater than 50% in coordination of care (as documented) at patient's floor/unit and/or counseling patient: Internal Medicine: Result - Labs CBC & Chem 7: 03/12/19 16:26 03/12/19 16:26 Labs: Short CBC 03/12/19 Range/Units 16:26 WBC 9.8 (4.3-11.1) K/mcL Hgb 11.4 L (11.5-15.4) g/dL Hct 38.0 (35.3-44.9) % Plt Count 252 (140-400) K/mcL Neutrophils # 7.7 (1.6-8.9) K/mcL BMP 03/12/19 16:26 Sodium 142 Potassium 3.7 Chloride 108 H Carbon Dioxide 27 BUN 15 Creatinine 0.71 Glucose 89 Calcium 9.6 Urine 03/12/19 Range/Units 15:42 Urine Color Yellow (Yellow) Urine Clarity Clear (Clear) Urine pH 7.0 (5.0-8.0) pH Units Ur Specific [place] 1.018 (1.010-1.025) Urine Protein 30 H (Neg-Trace) mg/dL Urine Glucose (UA) Normal (Normal) mg/dL - ABG Interpretation ABG results: PT/INR, D-dimer PT 11.4 Seconds (9.4-12.1) 03/12/19 16:26 - Impressions Impressions Face CT 03/12/19 14:00 IMPRESSION: No acute fracture identified. Multifocal soft tissue swelling, including the right forehead, the nasal bridge, and the left pre maxillary soft tissues. No radiopaque foreign bodies. Chronic right mandibular condyle fracture. D/ / Neal Grimm MD / Neal Grimm MD Interpreting Provider: Neal Grimm MD Head CT 03/12/19 14:00 IMPRESSION: No acute intracranial abnormality. Acute frontal scalp hematoma. D/ / 03/12/2019 17:35:25 Randall Salas MD / [facility] Interpreting Provider: Randall Salas MD Ribs w/Chest X-Ray 03/12/19 14:00 IMPRESSION: No acute cardiopulmonary disease. Limited rib series as outlined above. No displaced fracture identified. D/ / Randall Stevenson MD / Randall Stevenson MD Interpreting Provider: Randall Stevenson MD Elbow X-Ray 03/12/19 22:40 IMPRESSION: Olecranon swelling without acute osseous abnormality. D/ / Roman Hastings / Roman Hastings Interpreting Provider: Roman Hastings Elbow X-Ray 03/12/19 22:40 IMPRESSION: Soft tissue swelling without acute osseous abnormality. D/ / Roman Hastings / Roman Hastings Interpreting Provider: oRman Hastings Consult Discharge Plan - Plan Referrals: NONE,PCP [Primary Care Provider] -
[2019-03-13] MEDS ORDERED: Metoprolol XL (24 HR) Succ 25 MG TAB.ER.24H PO SCH (09:15)
[2019-03-13] MEDS ORDERED: Ipratropium/Albuterol Neb 3 ML IH PRN (09:15)
[2019-03-13 10:04] LABS: Hemoglobin 10.9 g/dL (11.5-15.4); Mean Corpuscular HGB Conc 30.3 g/dL (31.6-35.5); Mean Corpuscular Hemoglobin 26.4 pg (28.0-33.3); Mean Corpuscular Volume 87.2 fL (83.0-100.0); Mean Platelet Volume 10.8 fL (9.4-12.4); Platelet Count 224 K/mcL (140-400); Red Blood Count 4.13 M/mcL (3.82-4.97); Red Cell Distribution Width 17.2 % (11.5-14.5); White Blood Count 7.5 K/mcL (4.3-11.1)
[2019-03-13 10:24] LABS: BUN/Creatinine Ratio 20 (6-26); Blood Urea Nitrogen 12 mg/dL (8-23); Calcium 8.9 mg/dL (8.6-10.3); Carbon Dioxide 26 mEq/L (23-29); Chloride 105 mEq/L (98-107); Glucose 100 mg/dL (70-105); Magnesium 1.7 mg/dL (1.6-2.6); Osmolality,Calculated 290 (280-300); Phosphorous 2.7 mg/dL (2.7-4.5); Potassium 3.6 mEq/L (3.5-5.1); Sodium 140 mEq/L (136-145); eGFR For African Americans > 60 (> 60); eGFR For Non-African Americans > 60 (> 60)
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
== END 2019-03-13 14:30 | disposition home or self-care (01) ==
LOC: 3ANU 13:36 → EMEROOARM 13:36 → 3ANU 20:30
PROVIDERS: ADMIT Internal Medicine; ATTEND Student in an Organized Health Care Education/Training Program

== ENCOUNTER 2021-04-09 07:55 | Observation (INO) ==
[2021-04-09] MEDS ORDERED: predniSONE 20 MG TABLET PO ONE (08:26)
[2021-04-09 09:09] LABS: VBG HCO3 29 mEq/L (21-27); VBG PCO2 63 mmHg (41-51); VBG PH 7.26 pH Units (7.32-7.42); VBG PO2 42 mmHg (25-50)
[2021-04-09 09:11] LABS: Basophils % 0.4 %; Eosinophils # 0.3 K/mcL (0.0-0.6); Eosinophils % 3.1 %; Hematocrit 38.3 % (35.3-44.9); Hemoglobin 11.7 g/dL (11.5-15.4); Immature Granulocytes % 0.3 % (0-4); Lymphocytes # 1.4 K/mcL (0.6-4.6); Lymphocytes % 15.5 %; Mean Corpuscular HGB Conc 30.5 g/dL (31.6-35.5); Mean Corpuscular Hemoglobin 29.2 pg (28.0-33.3); Mean Corpuscular Volume 95.5 fL (83.0-100.0); Mean Platelet Volume 11.4 fL (9.4-12.4); Monocytes # 0.7 K/mcL (0.0-1.3); Monocytes % 7.8 %; Neutrophils # 6.5 K/mcL (1.6-8.9); Platelet Count 214 K/mcL (140-400); Red Blood Count 4.01 M/mcL (3.82-4.97); Red Cell Distribution Width 17.2 % (11.5-14.5); Segmented Neutrophils % 72.9 %
[2021-04-09 09:30] LABS: Calcium 9.4 mg/dL (8.6-10.3); Potassium 4.2 mEq/L (3.5-5.1); Troponin I 0.03 ng/mL (< 0.04)
[2021-04-09 09:37] LABS: Influenza A PCR Negative (Negative); Influenza B PCR Negative (Negative); Resp. Syncytial Virus PCR Negative (Negative); SARS-CoV-2 by PCR (In House) Negative (Negative)
[2021-04-09] MEDS ORDERED: Isovue-370 500 ML BOTTLE IVP ONE (09:42)
[2021-04-09 10:16] LABS: Bilirubin,Urine Negative (Negative); Blood,Urine Negative (Negative); Clarity,Urine Clear (Clear); Color,Urine Light-Yellow (Yellow); Glucose,Urine (UA) Normal (Normal); Ketones,Urine Negative (Negative); Leukocyte Esterase,Urine Negative (Negative); Nitrite,Urine Negative (Negative); PH,Urine 6.5 pH Units (5.0-8.0); Protein,Urine Trace mg/dL (Neg-Trace); Specific Gravity,Urine 1.013 (1.010-1.025); Urobilinogen,Urine Normal (Normal)
[2021-04-09] MEDS ORDERED: Ondansetron 4 MG/2 ML VIAL IVP PRN (12:08)
[2021-04-09] MEDS ORDERED: Naloxone 0.4 MG/ML INJ IVP PRN (12:08)
[2021-04-09 13:04] LABS: ABG Base Excess -1 mEq/L (-2 to 3); ABG HCO3 25 mEq/L (21-27); ABG Oxygen Saturation 92 % (95-98); ABG PCO2 50 mmHg (35-45); ABG PH 7.32 pH Units (7.32-7.45); ABG PO2 71 mmHg (85-104); ABG TCO2 27 mEq/L (20-26)
[2021-04-09 15:38] LABS: Acetaminophen < 10 mcg/mL (10-20); Alanine Aminotransferase 11 Units/L (7-52); Albumin 3.7 g/dL (3.5-5.7); Albumin/Globulin Ratio 1.3 (1.1-2.2); Alkaline Phosphatase 95 Units/L (34-104); Aspartate Amino Transferase 22 Units/L (13-39); Bilirubin,Direct 0.1 mg/dL (0.0-0.2); Bilirubin,Indirect 0.2 mg/dL (0.0-1.0); Bilirubin,Total 0.3 mg/dL (0.3-1.0); Globulin 2.8 g/dL (2.4-3.5); Salicylate < 2.5 mg/dL (15.0-30.0); Total Protein 6.5 g/dL (6.4-8.9)
[2021-04-09] MEDS: Ipratropium/Albuterol Neb 3 ML IH SCH ×2 (16:08→21:00)
[2021-04-09] MEDS ORDERED: MethylPREDNISolone 40 MG/ML VIAL IVP SCH (18:00)
[2021-04-09] MEDS ORDERED: Haloperidol Lactate 5 MG/ML VIAL IVP ONE (18:30)
[2021-04-09] MEDS: *HR* Heparin 5,000 UNIT/ML VIAL SQ SCH (20:31)
[2021-04-09] MEDS: Doxycycline 100 MG in 0.9 % Sodium Chloride Mini Bag 100 ML IVPB SCH (20:31)
[2021-04-09] MEDS: traZODone 50 MG TABLET PO SCH (20:31)
[2021-04-09] MEDS: Budesonide/Formoterol 160/4.5 1 PUFF INH IH SCH (21:00)
[2021-04-09] MEDS ORDERED: Acetaminophen 325 MG TABLET PO PRN (21:09)
[2021-04-09 21:29] LABS: ABG Base Excess -1 mEq/L (-2 to 3); ABG HCO3 26 mEq/L (21-27); ABG Oxygen Saturation 90 % (95-98); ABG PCO2 48 mmHg (35-45); ABG PH 7.34 pH Units (7.32-7.45); ABG PO2 62 mmHg (85-104); ABG TCO2 27 mEq/L (20-26)
[2021-04-10] MEDS: Ipratropium/Albuterol Neb 3 ML IH SCH ×7 (00:27→23:56)
[2021-04-10] MEDS: Doxycycline 100 MG in 0.9 % Sodium Chloride Mini Bag 100 ML IVPB SCH (05:20)
[2021-04-10] MEDS: *HR* Heparin 5,000 UNIT/ML VIAL SQ SCH ×2 (05:20→17:59)
[2021-04-10 05:27] LABS: Basophils % 0.1 %; Eosinophils % 0.3 %; Hematocrit 33.4 % (35.3-44.9); Hemoglobin 10.3 g/dL (11.5-15.4); Immature Granulocytes % 0.3 % (0-4); Lymphocytes # 1.9 K/mcL (0.6-4.6); Lymphocytes % 26.5 %; Mean Corpuscular HGB Conc 30.8 g/dL (31.6-35.5); Mean Corpuscular Volume 94.1 fL (83.0-100.0); Mean Platelet Volume 10.9 fL (9.4-12.4); Monocytes # 0.6 K/mcL (0.0-1.3); Neutrophils # 4.5 K/mcL (1.6-8.9); Platelet Count 177 K/mcL (140-400); Red Blood Count 3.55 M/mcL (3.82-4.97); Red Cell Distribution Width 16.8 % (11.5-14.5); Segmented Neutrophils % 63.8 %
[2021-04-10 05:38] LABS: Activated Partial Thrombo Time 27.2 Seconds (26.0-36.0)
[2021-04-10 05:41] LABS: Prothrombin Time 11.4 Seconds (9.4-12.1)
[2021-04-10 05:45] LABS: BUN/Creatinine Ratio 16 (6-26); Blood Urea Nitrogen 14 mg/dL (8-23); Calcium 9.1 mg/dL (8.6-10.3); Carbon Dioxide 26 mEq/L (23-29); Chloride 107 mEq/L (98-107); Glucose 81 mg/dL (70-105); Magnesium 1.6 mg/dL (1.6-2.6); Osmolality,Calculated 286 (280-300); Phosphorous 2.2 mg/dL (2.7-4.5); Potassium 3.8 mEq/L (3.5-5.1); Sodium 138 mEq/L (136-145); eGFR For African Americans > 60 (> 60); eGFR For Non-African Americans > 60 (> 60)
[2021-04-10] MEDS: Budesonide/Formoterol 160/4.5 1 PUFF INH IH SCH ×2 (07:51→20:52)
[2021-04-10] MEDS ORDERED: Metoprolol XL (24 HR) Succ 25 MG TAB.ER.24H PO SCH ×2 (09:00→21:00)
[2021-04-10] MEDS: predniSONE 20 MG TABLET PO SCH (09:21)
[2021-04-10] MEDS ORDERED: *HR* OxyCODONE/APAP 5/325 TABLET PO PRN (09:46)
[2021-04-10] MEDS ORDERED: *HR* Promethazine 25 MG/ML VIAL IM PRN (09:46)
[2021-04-10] MEDS: Divalproex (24 HR) 250 MG TABLET PO SCH (12:10)
[2021-04-10] MEDS: Metoprolol XL (24 HR) Succ 50 MG TAB.ER.24H PO SCH ×2 (13:16→20:06)
[2021-04-10 14:17] LABS: Adenovirus Not Detected (Not Detect); Bordetella Pertussis Not Detected (Not Detect); Chlamydophila pneumoniae Not Detected (Not Detect); Coronavirus 229E Not Detected (Not Detect); Coronavirus HKU1 Not Detected (Not Detect); Coronavirus NL63 Not Detected (Not Detect); Coronavirus OC43 Not Detected (Not Detect); Human Metapneumovirus Not Detected (Not Detect); Human Rhinovirus/Enterovirus DETECTED (Not Detect); Influenza A Subtype 2009 H1 Not Detected (Not Detect); Influenza B Not Detected (Not Detect); Mycoplasma pneumoniae Not Detected (Not Detect); Parainfluenza Virus 1 Not Detected (Not Detect); Parainfluenza Virus 2 Not Detected (Not Detect); Parainfluenza Virus 3 Not Detected (Not Detect); Parainfluenza Virus 4 Not Detected (Not Detect); Respiratory Syncytial Virus Not Detected (Not Detect); SARS-CoV-2 Not Detected (Not Detect)
[2021-04-10] MEDS: Gabapentin 300 MG CAPSULE PO SCH ×2 (14:21→20:06)
[2021-04-10] MEDS: traZODone 50 MG TABLET PO SCH (20:06)
[2021-04-10] MEDS: Doxycycline 100 MG CAPSULE PO SCH (20:06)
[2021-04-11] MEDS: Ipratropium/Albuterol Neb 3 ML IH SCH ×3 (04:22→11:39)
[2021-04-11] MEDS: *HR* Heparin 5,000 UNIT/ML VIAL SQ SCH (05:50)
[2021-04-11 05:51] LABS: Hematocrit 33.1 % (35.3-44.9); Hemoglobin 10.5 g/dL (11.5-15.4); Mean Corpuscular HGB Conc 31.7 g/dL (31.6-35.5); Mean Corpuscular Hemoglobin 29.5 pg (28.0-33.3); Mean Platelet Volume 10.9 fL (9.4-12.4); Platelet Count 173 K/mcL (140-400); Red Blood Count 3.56 M/mcL (3.82-4.97); Red Cell Distribution Width 16.7 % (11.5-14.5); White Blood Count 6.2 K/mcL (4.3-11.1)
[2021-04-11 05:52] LABS: VBG HCO3 27 mEq/L (21-27); VBG PCO2 45 mmHg (41-51); VBG PH 7.38 pH Units (7.32-7.42); VBG PO2 201 mmHg (25-50)
[2021-04-11 06:08] LABS: BUN/Creatinine Ratio 18 (6-26); Blood Urea Nitrogen 13 mg/dL (8-23); Calcium 8.9 mg/dL (8.6-10.3); Carbon Dioxide 27 mEq/L (23-29); Chloride 108 mEq/L (98-107); Glucose 76 mg/dL (70-105); Osmolality,Calculated 287 (280-300); Sodium 139 mEq/L (136-145); eGFR For African Americans > 60 (> 60); eGFR For Non-African Americans > 60 (> 60)
[2021-04-11] MEDS: Budesonide/Formoterol 160/4.5 1 PUFF INH IH SCH (08:14)
[2021-04-11] MEDS ORDERED: Cyanocobalamin (B-12) 1,000 MCG TABLET PO SCH (09:00)
[2021-04-11] MEDS: Divalproex (24 HR) 250 MG TABLET PO SCH (09:06)
[2021-04-11] MEDS: predniSONE 20 MG TABLET PO SCH (09:06)
[2021-04-11] MEDS: Gabapentin 300 MG CAPSULE PO SCH (09:07)
[2021-04-11] MEDS: Doxycycline 100 MG CAPSULE PO SCH (09:07)
[2021-04-11 10:57] VITALS: BP 146/81; PULSE 75; TEMP 98.6; O2SAT 98
[2021-04-11] MEDS ORDERED: FLU Vac QV 21-22 (6Month+)/PF 0.5 ML SYRINGE IM ONE (11:13)
== END 2021-04-11 12:55 | disposition home or self-care (01) ==
LOC: 3ANU 07:55 → EMEROOARM 07:55 → 3ANU 13:53
PROVIDERS: ADMIT Internal Medicine; ATTEND Internal Medicine

== ENCOUNTER 2021-09-15 15:46 | Inpatient (IN) ==
[2021-09-15] MEDS ORDERED: Isovue-370 500 ML BOTTLE IVP ONE (16:34)
[2021-09-15 18:51] LABS: Basophils # 0.1 K/mcL (0.0-0.2); Basophils % 0.9 %; Eosinophils # 0.4 K/mcL (0.0-0.6); Eosinophils % 5.5 %; Hematocrit 41.3 % (35.3-44.9); Immature Granulocytes % 0.5 % (0-4); Lymphocytes # 1.7 K/mcL (0.6-4.6); Lymphocytes % 22.2 %; Mean Corpuscular HGB Conc 31.5 g/dL (31.6-35.5); Mean Corpuscular Hemoglobin 27.9 pg (28.0-33.3); Mean Corpuscular Volume 88.6 fL (83.0-100.0); Mean Platelet Volume 10.1 fL (9.4-12.4); Monocytes # 0.6 K/mcL (0.0-1.3); Monocytes % 7.3 %; Neutrophils # 4.9 K/mcL (1.6-8.9); Platelet Count 231 K/mcL (140-400); Red Blood Count 4.66 M/mcL (3.82-4.97); Red Cell Distribution Width 18.7 % (11.5-14.5); Segmented Neutrophils % 63.6 %; White Blood Count 7.7 K/mcL (4.3-11.1)
[2021-09-15 19:13] LABS: Alanine Aminotransferase 9 Units/L (7-52); Albumin 3.8 g/dL (3.5-5.7); Albumin/Globulin Ratio 1.2 (1.1-2.2); Alkaline Phosphatase 83 Units/L (34-104); Aspartate Amino Transferase 19 Units/L (13-39); BUN/Creatinine Ratio 18 (6-26); Bilirubin,Direct 0.1 mg/dL (0.0-0.2); Bilirubin,Indirect 0.5 mg/dL (0.0-1.0); Bilirubin,Total 0.6 mg/dL (0.3-1.0); Blood Urea Nitrogen 13 mg/dL (8-23); Calcium 9.3 mg/dL (8.6-10.3); Carbon Dioxide 27 mEq/L (23-29); Chloride 103 mEq/L (98-107); Ethanol < 10 mg/dL (Less than 10); Globulin 3.1 g/dL (2.4-3.5); Glucose 74 mg/dL (70-105); Osmolality,Calculated 287 (280-300); Potassium 3.4 mEq/L (3.5-5.1); Sodium 139 mEq/L (136-145); Total Protein 6.9 g/dL (6.4-8.9); Troponin I < 0.03 ng/mL (< 0.04); eGFR For African Americans > 60 (> 60); eGFR For Non-African Americans > 60 (> 60)
[2021-09-15 21:19] LABS: Acetaminophen < 10 mcg/mL (10-20); Salicylate < 2.5 mg/dL (15.0-30.0)
[2021-09-15 21:57] LABS: Bilirubin,Urine Negative (Negative); Blood,Urine Negative (Negative); Clarity,Urine Clear (Clear); Color,Urine Colorless (Yellow); Glucose,Urine (UA) Normal (Normal); Ketones,Urine Negative (Negative); Leukocyte Esterase,Urine Negative (Negative); Nitrite,Urine Negative (Negative); Protein,Urine Negative (Neg-Trace); Specific Gravity,Urine 1.022 (1.010-1.025); Urobilinogen,Urine Normal (Normal)
[2021-09-15 22:07] LABS: Amphetamine Screen,Urine Negative ng/mL (Cutoff=1000); Barbiturate Screen,Urine Negative ng/mL (Cutoff=200); Benzodiazepines Screen,Urine Negative ng/mL (Cutoff=200); Cannabinoid Screen,Urine Negative ng/mL (Cutoff = 50); Cocaine Screen,Urine Negative ng/mL (Cutoff= 300); Opiate Screen,Urine Negative ng/mL (Cutoff=300); Phencyclidine Screen,Urine Negative ng/mL (Cutoff=25)
[2021-09-15] MEDS ORDERED: Dextrose 4 GM Chewable Tablets PO PRN ×2 (23:53)
[2021-09-15] MEDS ORDERED: D5% in Water 1,000 ML IVC PRN (23:53)
[2021-09-15] MEDS ORDERED: Naloxone 0.4 MG/ML INJ IVP PRN (23:56)
[2021-09-16 01:10] LABS: Basophils # 0.1 K/mcL (0.0-0.2); Basophils % 0.7 %; Eosinophils # 0.4 K/mcL (0.0-0.6); Eosinophils % 5.1 %; Hematocrit 38.3 % (35.3-44.9); Hemoglobin 12.4 g/dL (11.5-15.4); Immature Granulocytes % 0.2 % (0-4); Lymphocytes # 2.5 K/mcL (0.6-4.6); Lymphocytes % 30.1 %; Mean Corpuscular HGB Conc 32.4 g/dL (31.6-35.5); Mean Corpuscular Hemoglobin 28.2 pg (28.0-33.3); Mean Corpuscular Volume 87.2 fL (83.0-100.0); Mean Platelet Volume 10.4 fL (9.4-12.4); Monocytes # 0.6 K/mcL (0.0-1.3); Monocytes % 7.6 %; Neutrophils # 4.6 K/mcL (1.6-8.9); Platelet Count 238 K/mcL (140-400); Red Blood Count 4.39 M/mcL (3.82-4.97); Red Cell Distribution Width 18.5 % (11.5-14.5); Segmented Neutrophils % 56.3 %; White Blood Count 8.3 K/mcL (4.3-11.1)
[2021-09-16 01:11] LABS: VBG HCO3 24 mEq/L (21-27); VBG PCO2 33 mmHg (41-51); VBG PH 7.47 pH Units (7.32-7.42); VBG PO2 91 mmHg (25-50)
[2021-09-16] MEDS ORDERED: Saliva Stimulant 44.3ml BOTTLE PO PRN (01:12)
[2021-09-16] MEDS ORDERED: 0.9 % Sodium Chloride 1,000 ML IVC SCH (01:15)
[2021-09-16 01:16] LABS: INR 1.1; Prothrombin Time 12.3 Seconds (9.4-12.1)
[2021-09-16 01:53] LABS: Alanine Aminotransferase 6 Units/L (7-52); Albumin 3.6 g/dL (3.5-5.7); Albumin/Globulin Ratio 1.2 (1.1-2.2); Alkaline Phosphatase 76 Units/L (34-104); Aspartate Amino Transferase 19 Units/L (13-39); BUN/Creatinine Ratio 18 (6-26); Bilirubin,Total 0.5 mg/dL (0.3-1.0); Blood Urea Nitrogen 10 mg/dL (8-23); Calcium 9.2 mg/dL (8.6-10.3); Carbon Dioxide 23 mEq/L (23-29); Chloride 104 mEq/L (98-107); Glucose 70 mg/dL (70-105); Osmolality,Calculated 285 (280-300); Prolactin 36.38 ng/mL (3.80-23.20); Sodium 139 mEq/L (136-145); Thyroid Stimulating Hormone 2.411 mcIU/mL (0.340-5.600); Total Protein 6.6 g/dL (6.4-8.9); eGFR For African Americans > 60 (> 60); eGFR For Non-African Americans > 60 (> 60)
[2021-09-16 01:57] LABS: Folate 17.1 ng/mL (3.0-16.0)
[2021-09-16] MEDS ORDERED: Valproic Acid INJ 1,000 MG in 0.9 % Sodium Chloride 100 ML IVPB ONE (02:00)
[2021-09-16] MEDS: Insulin LISPRO 300 UNITS/3 ML VIAL SUBQ SCH ×7 (02:11→23:29)
[2021-09-16] MEDS: 0.9 % Sodium Chloride w KCl 20 MEQ/1,000 ML MLS IVC SCH ×2 (03:29→15:14)
[2021-09-16] MEDS: *HR* Heparin 5,000 UNIT/ML VIAL SQ SCH ×3 (05:01→23:28)
[2021-09-16] MEDS: *HR* Labetalol 20 MG/4 ML SYRINGE IVP PRN (05:07)
[2021-09-16] MEDS: *HR* LORazepam 2 MG/ML VIAL IVP PRN ×4 (06:30→21:58)
[2021-09-16] MEDS: Chlorhexidine Rinse 15 ML MOUTHWASH MM SCH ×2 (09:45→19:37)
[2021-09-16] MEDS ORDERED: Lactulose Oral Soln 20 GM/30 ML UDC PO ONE (09:48)
[2021-09-16] MEDS ORDERED: Magnesium Sulfate 1 GM/102 ML PIGGYBACK IVPB ONE (10:15)
[2021-09-16] MEDS: Valproic Acid INJ 125 MG in 0.9 % Sodium Chloride 100 ML IVPB SCH (13:44)
[2021-09-17] MEDS: *HR* Labetalol 20 MG/4 ML SYRINGE IVP PRN ×2 (00:20→11:40)
[2021-09-17] MEDS: Valproic Acid INJ 125 MG in 0.9 % Sodium Chloride 100 ML IVPB SCH ×2 (00:59→14:15)
[2021-09-17] MEDS: *HR* LORazepam 2 MG/ML VIAL IVP PRN ×5 (02:30→23:14)
[2021-09-17] MEDS: Insulin LISPRO 300 UNITS/3 ML VIAL SUBQ SCH ×5 (04:44→19:54)
[2021-09-17] MEDS: *HR* Heparin 5,000 UNIT/ML VIAL SQ SCH ×3 (06:17→19:55)
[2021-09-17] MEDS: *HR* Dextrose 50 % in Water (Syg) 50 ML SYRINGE IVP PRN ×4 (06:42→23:55)
[2021-09-17 07:31] LABS: Basophils # 0.1 K/mcL (0.0-0.2); Basophils % 0.8 %; Eosinophils # 0.6 K/mcL (0.0-0.6); Eosinophils % 8.2 %; Hematocrit 38.2 % (35.3-44.9); Hemoglobin 11.9 g/dL (11.5-15.4); Immature Granulocytes % 0.3 % (0-4); Lymphocytes # 1.9 K/mcL (0.6-4.6); Lymphocytes % 25.6 %; Mean Corpuscular HGB Conc 31.2 g/dL (31.6-35.5); Mean Corpuscular Hemoglobin 27.8 pg (28.0-33.3); Mean Corpuscular Volume 89.3 fL (83.0-100.0); Mean Platelet Volume 10.4 fL (9.4-12.4); Monocytes # 0.5 K/mcL (0.0-1.3); Monocytes % 6.8 %; Neutrophils # 4.4 K/mcL (1.6-8.9); Platelet Count 224 K/mcL (140-400); Red Blood Count 4.28 M/mcL (3.82-4.97); Red Cell Distribution Width 18.6 % (11.5-14.5); Segmented Neutrophils % 58.3 %; White Blood Count 7.5 K/mcL (4.3-11.1)
[2021-09-17 08:07] LABS: Alanine Aminotransferase 9 Units/L (7-52); Albumin 3.6 g/dL (3.5-5.7); Albumin/Globulin Ratio 1.3 (1.1-2.2); Alkaline Phosphatase 77 Units/L (34-104); Aspartate Amino Transferase 21 Units/L (13-39); BUN/Creatinine Ratio 16 (6-26); Bilirubin,Total 0.5 mg/dL (0.3-1.0); Blood Urea Nitrogen 10 mg/dL (8-23); Calcium 9.4 mg/dL (8.6-10.3); Carbon Dioxide 28 mEq/L (23-29); Chloride 106 mEq/L (98-107); Globulin 2.7 g/dL (2.4-3.5); Glucose 135 mg/dL (70-105); Osmolality,Calculated 285 (280-300); Potassium 4.8 mEq/L (3.5-5.1); Sodium 137 mEq/L (136-145); Total Protein 6.3 g/dL (6.4-8.9); eGFR For African Americans > 60 (> 60); eGFR For Non-African Americans > 60 (> 60)
[2021-09-17] MEDS: Chlorhexidine Rinse 15 ML MOUTHWASH MM SCH ×2 (09:15→19:54)
[2021-09-17] MEDS ORDERED: Metoprolol XL (24 HR) Succ 50 MG TAB.ER.24H PO SCH ×2 (10:00→21:00)
[2021-09-17] MEDS ORDERED: lisinopriL 5 MG TABLET PO SCH (12:30)
[2021-09-17] MEDS ORDERED: Metoprolol XL (24 HR) Succ 50 MG TAB.ER.24H PO ONE (14:08)
[2021-09-17] MEDS ORDERED: Ibuprofen 400 MG TABLET PO PRN (16:30)
[2021-09-17] MEDS ORDERED: *HR* Labetalol 20 MG/4 ML SYRINGE IVP ONE (16:37)
[2021-09-17] MEDS: hydrALAZINE 10 MG TABLET PO SCH (19:44)
[2021-09-18] MEDS: Insulin LISPRO 300 UNITS/3 ML VIAL SUBQ SCH ×4 (00:41→11:21)
[2021-09-18] MEDS: Valproic Acid INJ 125 MG in 0.9 % Sodium Chloride 100 ML IVPB SCH ×2 (01:27→13:17)
[2021-09-18] MEDS: hydrALAZINE 10 MG TABLET PO SCH (02:19)
[2021-09-18] MEDS: *HR* Heparin 5,000 UNIT/ML VIAL SQ SCH ×2 (05:20→11:22)
[2021-09-18] MEDS: *HR* LORazepam 2 MG/ML VIAL IVP PRN (07:40)
[2021-09-18] MEDS: Chlorhexidine Rinse 15 ML MOUTHWASH MM SCH (07:58)
[2021-09-18] MEDS ORDERED: lisinopriL 5 MG TABLET PO SCH (09:00)
[2021-09-18] MEDS ORDERED: Metoprolol XL (24 HR) Succ 50 MG TAB.ER.24H PO SCH (09:00)
[2021-09-18 09:29] LABS: Basophils # 0.1 K/mcL (0.0-0.2); Basophils % 0.9 %; Eosinophils # 0.6 K/mcL (0.0-0.6); Eosinophils % 8.1 %; Hematocrit 40.9 % (35.3-44.9); Hemoglobin 13.1 g/dL (11.5-15.4); Immature Granulocytes % 0.3 % (0-4); Lymphocytes # 1.9 K/mcL (0.6-4.6); Lymphocytes % 27.8 %; Mean Corpuscular Hemoglobin 27.8 pg (28.0-33.3); Mean Corpuscular Volume 86.8 fL (83.0-100.0); Mean Platelet Volume 10.3 fL (9.4-12.4); Monocytes # 0.6 K/mcL (0.0-1.3); Monocytes % 8.2 %; Neutrophils # 3.8 K/mcL (1.6-8.9); Platelet Count 260 K/mcL (140-400); Red Blood Count 4.71 M/mcL (3.82-4.97); Red Cell Distribution Width 18.6 % (11.5-14.5); Segmented Neutrophils % 54.7 %; White Blood Count 6.9 K/mcL (4.3-11.1)
[2021-09-18 09:51] LABS: Alanine Aminotransferase 9 Units/L (7-52); Albumin 3.7 g/dL (3.5-5.7); Albumin/Globulin Ratio 1.2 (1.1-2.2); Alkaline Phosphatase 79 Units/L (34-104); Aspartate Amino Transferase 17 Units/L (13-39); BUN/Creatinine Ratio 15 (6-26); Bilirubin,Total 0.7 mg/dL (0.3-1.0); Blood Urea Nitrogen 9 mg/dL (8-23); Carbon Dioxide 26 mEq/L (23-29); Chloride 99 mEq/L (98-107); Glucose 88 mg/dL (70-105); Osmolality,Calculated 274 (280-300); Potassium 4.3 mEq/L (3.5-5.1); Sodium 133 mEq/L (136-145); Total Protein 6.7 g/dL (6.4-8.9); eGFR For African Americans > 60 (> 60); eGFR For Non-African Americans > 60 (> 60)
[2021-09-18] MEDS: *HR* Labetalol 20 MG/4 ML SYRINGE IVP PRN (11:35)
[2021-09-18] MEDS ORDERED: Ketorolac 30 MG/ML VIAL IVP ONE (12:08)
[2021-09-18] MEDS ORDERED: hydrALAZINE 10 MG TABLET PO ONE (12:09)
[2021-09-18 14:28] VITALS: BP 146/93; PULSE 84; TEMP 98; O2SAT 94
[2021-09-18] MEDS ORDERED: Gabapentin 300 MG CAPSULE PO SCH (15:00)
[2021-09-18] MEDS ORDERED: hydrALAZINE 25 MG TABLET PO SCH (18:00)
== END 2021-09-18 16:56 | disposition home or self-care (01) | DRG 917 ==
LOC: EMEROOARM 15:46 → 3BNU 15:46 → SUATTDRO 20:58 → 3BNU 22:07
PROVIDERS: ADMIT Internal Medicine; ATTEND Internal Medicine